=== PATIENT | male | born 1955 | race Two or more races ===

== ENCOUNTER 2017-07-02 13:20 | Emergency (ER) | payer OTHER ==
[2017-07-02 13:39] VITALS: BMI 27.3
--- NOTE | 2017-07-02 14:48 | PDOC ---
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 He reports his BP in the drafter structural office was 209/ 108 today. He denies taking his coreg for hypertension this morning. He states he is normally compliant with his medications. He denies monitoring his BP daily despite having the machine at home. The patient's son brought his father' s medications and the patient took the coreg in the ED. He denies chest pain, shortness of breath, headache, visual changes, and dizziness. He denies fever, chills, nausea, vomit, diarrhea and constipation. He denies dysuria, frequency, urgency and hematuria. Allergies: NKDA Social history: denies toxic habits <Inessa Johnson - Last Filed: 07/02/17 14:53> - General History Source: Patient Exam Limitations: No Limitations <Vandana Daley - Last Filed: 07/02/17 16:46> - General Chief Complaint: Blood Pressure Problem Stated Complaint: ELEVATED BP Time Seen by Provider: 07/02/17 14:48 Past History <Inessa Johnson - Last Filed: 07/02/17 14:53> - Past Medical History Cancer: Yes (colon cancer) COPD: No DVT: No Diabetes: No GI Disorders: No Disorders: No HTN: Yes Liver Disease: No Thyroid Disease: No - Surgical History Abdominal Surgery: No Appendectomy: No Cardiac Surgery: No Cholecystectomy: Yes Lung Surgery: No Neurologic Surgery: No Orthopedic Surgery: No - Immunization History Immunization Up to Date: Yes - Suicide/Smoking/Psychosocial Hx Smoking Status: No Smoking History: Never smoked Have you smoked in the past 12 months: No Number of Cigarettes Smoked Daily: 0 Information on smoking cessation initiated: No Hx Alcohol Use: No Drug/Substance Use Hx: No Substance Use Type: None <Vandana Daley - Last Filed: 07/02/17 16:46> - Past Medical History Allergies/Adverse Reactions: Allergies Allergy/AdvReac Type Severity Reaction Status Date / Time No Known Allergies Allergy Verified 07/02/17 13:28 Home Medications: Ambulatory Orders Carvedilol 6.25 mg PO BID 07/02/17 Cyanocobalamin (Vitamin B-12) [B-12] 1,000 mcg PO DAILY 07/02/17 Losartan Potassium 100 mg PO DAILY 07/02/17 Prednisone [Deltasone] 60 mg PO DAILY 07/02/17 Review of Systems - Review of Systems Able to Perform ROS?: Yes Comments:: 07/02/17 14:54 CONSTITUTIONAL: Absent: fever, no chills, no fatigue EYES: Absent: visual changes ENT: Absent: ear pain, no sore throat CARDIOVASCULAR: Absent: chest pain, no palpitations RESPIRATORY: Absent: cough, no SOB GASTROINTESTINAL: Absent: abdominal pain, no nausea, no vomiting, no constipation, no diarrhea GENITOURINARY: Absent: dysuria, no frequency, no hematuria MUSCULOSKELETAL: Absent: back pain, no arthralgia, no myalgia SKIN: Absent: rash NEURO: Absent: headache <Inessa Johnson - Last Filed: 07/02/17 14:53> *Physical Exam - Vital Signs Last Vital Signs Temp Pulse Resp BP Pulse Ox 98.3 F 66 17 190/110 94 L 07/02/17 13:28 07/02/17 13:28 07/02/17 13:28 07/02/17 13:28 07/02/17 13:28 - Physical Exam Comments: 07/02/17 14:55 GENERAL: The patient is in no acute distress. HEAD: Normal with no signs of trauma. EYES: PERRLA, EOMI, sclera anicteric, conjunctiva clear. ENT: Ears normal, nares patent, oropharynx clear without exudates. Moist mucous membranes. NECK: Normal range of motion, supple without lymphadenopathy, JVD, or masses. LUNGS: Breath sounds equal, clear to auscultation bilaterally. No wheezes, and no crackles. HEART:Regular rate and rhythm, normal S1 and S2 without murmur, rub or gallop. ABDOMEN: Soft, nontender, normoactive bowel sounds. No guarding, no rebound. No masses palpable. EXTREMITIES: Normal range of motion, no edema. No clubbing or cyanosis. No erythema, or tenderness. NEUROLOGICAL: Cranial nerves II through XII grossly intact. Normal speech. No focal neurological deficits. MUSCULOSKELETAL: Back non-tender to palpation, no CVA tenderness SKIN: Warm, Dry, normal turgor, no rashes or lesions noted. 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 Pt was sent to the ER for "Evaluation" Pt denies chest pain, shortness of breath, palpitations, headache, visual changes Pt is well appearing on examination Rash noted on the face and dorsum of both hands RRR CTA No abd tenderness Will do: Basic Labs Pt took his medication that he was supposed to take this morning EKG 07/02/17 15:40 EKG: SR rate of 68 bpm, axis nml, intervals nml, no st elevations or depressions 07/02/17 16:01 Selected Entries 07/02/17 15:49 Blood Pressure 112/100 [Right Arm] Laboratory Tests 07/02/17 15:25 WBC 6.4 D Hgb 14.0 D Hct 40.6 D Plt Count 299 07/02/17 16:43 Laboratory Tests 07/02/17 15:25 Sodium 141 Potassium 4.1 Chloride 106 Carbon Dioxide 27 BUN 12 D Creatinine 0.8 Alkaline Phosphatase 136 H D Creatine Kinase 400 H Creatine Kinase Index 1.1 CK-MB (CK-2) 4.436 H Troponin I < 0.02 Will discharge to home Follow up with PMD Clinical Impression: essential hypertension, initial presentation <Vandana Daley - Last Filed: 07/02/17 16:46> *DC/Admit/Observation/Transfer - Attestations Scribe Attestion: 07/02/17 14:55 Documentation prepared by Inessa Johnson, acting as emergency medical service manager for Vandana Daley MD <Inessa Johnson - Last Filed: 07/02/17 14:53> - Discharge Dispostion Admit: No <Vandana Daley - Last Filed: 07/02/17 16:46> Diagnosis at time of Disposition: Hypertension Qualifiers: Hypertension type: unspecified Qualified Code(s): I10 - Essential (primary) hypertension - Discharge Dispostion Disposition: HOME Condition at time of disposition: Stable - Referrals Referrals: Aries Bolaños [Primary Care Provider] - - Patient Instructions Printed Discharge Instructions: DI for High Blood Pressure Additional Instructions: Mr Flynn Thank you for coming into the emergency department today. Please be sure to follow up with your primary care physician. Presenting to take medications as prescribed. If you develop any symptoms that are new or concerning, please feel free to come into the emergency department for evaluation - Post Discharge Activity Forms/Work/School Notes: Back to Work
[2017-07-02 15:36] LABS: BASO % 0.8 % (0-2.0); EOS % 4.6 % (0-4.5); HEMATOCRIT 40.6 % (35.4-49); LYMPH % 15.4 % (8-40); MCH 29.3 pg (25.7-33.7); MCHC 34.4 g/dl (32.0-35.9); MEAN CELL VOLUME 85.3 fl (80-96); MEAN PLT VOLUME 7.7 fl (7.5-11.1); MONO % 9.7 % (3.8-10.2); NEUT % 69.5 % (42.8-82.8); PLATELET COUNT 299 K/MM3 (134-434); RBC 4.77 M/mm3 (4.00-5.60); RDW 14.1 % (11.9-15.9); WHITE BLOOD COUNT 6.4 K/mm3 (4.0-10.0)
[2017-07-02 16:03] LABS: ALBUMIN 4.2 g/dl (3.4-5.0); ANION GAP 8 (8-16); BILIRUBIN,TOTAL 0.7 mg/dL (0.2-1.0); BLOOD UREA NITROGEN 12 mg/dL (7-18); CALCIUM 9.2 mg/dL (8.5-10.1); CHLORIDE 106 mmol/L (98-107); CO2 27 mmol/L (21-32); CREATININE 0.8 mg/dL (0.7-1.3); GLUCOSE,RANDOM 92 mg/dL (74-106); POTASSIUM 4.1 mmol/L (3.5-5.1); SGOT/AST 25 U/L (15-37); SGPT/ALT 24 U/L (12-78); SODIUM 141 mmol/L (136-145); TOT PROT 7.9 g/dl (6.4-8.2)
[2017-07-02 16:06] LABS: ALK PHOS 136 U/L (45-117)
[2017-07-02 17:05] VITALS: BP 169/100; PULSE 74; TEMP 98.1
--- NOTE | 2017-07-02 19:16 | EKG ---
Test Reason : Blood Pressure : / mmHG Vent. Rate : 068 BPM Atrial Rate : 068 BPM P-R Int : 188 ms QRS Dur : 098 ms QT Int : 402 ms P-R-T Axes : 042 -21 020 degrees QTc Int : 427 ms NORMAL SINUS RHYTHM NORMAL ECG WHEN COMPARED WITH ECG OF 30-SEP-2011 03:18, NONSPECIFIC T WAVE ABNORMALITY NO LONGER EVIDENT IN ANTERIOR LEADS Confirmed by RAIMUNDO DRAPER, JESSICA ([id number]) on 07/02/2017 7:15:58 PM Referred By: Confirmed By:JESSICA EUBANKS MD
== END 2017-07-02 17:05 | disposition home or self-care (01) ==
LOC: JER 13:20
DX: I10 Essential (primary) hypertension (principal)
CPT/HCPCS: 36415; 80053; 82550; 82553; 84484; 85025; 93005; 93010; 99283-25

== ENCOUNTER 2017-08-14 09:41 | Inpatient (IN) | payer OTHER ==
[2017-08-14 09:53] VITALS: BMI 28.1
--- NOTE | 2017-08-14 09:55 | PDOC ---
History of Present Illness - General Chief Complaint: SIRS, Suspected/Possible Stated Complaint: LETHARGIC, NAUSEA Time Seen by Provider: 08/14/17 09:55 - History of Present Illness Initial Comments: 08/14/17 10:08 The patient is a 61 year old male with a history of HTN and Colon CA who presents for evaluation of generalized weakness, nausea, vomiting, diarrhea. The patient was noted to experience a syncopal episode in triage with a systolic BP of 70. The patient is accompanied by family who assist in providing the history. They note that the patient has been experiencing dysuria and urinary incontinence over the past several days with associated nausea and multiple episodes of non-bilious, non-bloody vomiting, and diarrhea. They report subjective fevers at home but otherwise deny SOB, chest pain, numbness, tingling or changes with bowel movements. Past History - Past Medical History Allergies/Adverse Reactions: Allergies Allergy/AdvReac Type Severity Reaction Status Date / Time No Known Allergies Allergy Verified 08/14/17 09:45 Home Medications: Ambulatory Orders Carvedilol 6.25 mg PO BID 07/02/17 Losartan Potassium 100 mg PO DAILY 07/02/17 Nifedipine [Procardia Xl] 30 mg PO DAILY 08/14/17 Cancer: Yes (colon cancer) COPD: No DVT: No Diabetes: No GI Disorders: No Disorders: No HTN: Yes Liver Disease: No Thyroid Disease: No - Surgical History Abdominal Surgery: Yes (COLON RESECTION) Appendectomy: No Cardiac Surgery: No Cholecystectomy: Yes Lung Surgery: No Neurologic Surgery: No Orthopedic Surgery: No - Immunization History Immunization Up to Date: Yes - Suicide/Smoking/Psychosocial Hx Smoking Status: No Smoking History: Never smoked Have you smoked in the past 12 months: No Number of Cigarettes Smoked Daily: 0 Information on smoking cessation initiated: No Hx Alcohol Use: No Drug/Substance Use Hx: No Substance Use Type: None Review of Systems - Review of Systems Comments:: 08/14/17 10:13 Constitutional: Fever, Generalized Fatigue. No malaise HEENT: No Rhinorrhea, nasal congestion, visual changes Cardiovascular: Syncope. No chest pain, palpitations, lightheadedness Respiratory: No Cough, SOB, Hemoptysis, Gastrointestinal: Nausea, vomiting, Diarrhea. No Abdominal pain, Constipation, Melena Genitourinary: Dysuria, Incontinence, Increased Frequency. No Urgency, Hesitancy, Hematuria, Flank pain Musculoskeletal: No Myalgia, arthralgia Skin: No rashes, itching, bruising, pallor Neurologic: No Headache, Dizziness, Numbness, Weakness, or Tingling Psychiatric: No Hallucinations. No SI or HI *Physical Exam - Vital Signs Last Vital Signs Temp Pulse Resp BP Pulse Ox 99.7 F H 80 18 70/38 100 08/14/17 09:45 08/14/17 09:45 08/14/17 09:45 08/14/17 09:45 08/14/17 09:45 - Physical Exam Comments: 08/14/17 10:17 General Appearance: Nourished. Diaphoretic, In Mild Apparent Distress HEENT: EOMI, TU. No Pharyngeal Erythema, Tonsillar Exudate, Tonsillar Erythema Neck: No Cervical Lymphadenopathy Respiratory/Chest: Lungs Clear, Normal Breath Sounds. No Crackles, Rales, Rhonchi, Wheezing Cardiovascular: Regular Rhythm, Regular Rate. No Murmur, Gallops, Rubs Gastrointestinal/Abdominal: Normal Bowel Sounds, Soft. No Guarding, Rebound, Tenderness Musculoskeletal: No CVA Tenderness Extremity: Normal Capillary Refill Integumentary: Normal Color, Dry, Warm Neurologic: Fully Oriented, Alert, Normal Mood/Affect, Normal Response, Heart Score/ECG Review #1 ECG reviewed & interpreted by me at: 10:18 General ECG Interpretation: Sinus Rhythm, Normal Rate, Normal Intervals, No acute ischemic changes ED Treatment Course - LABORATORY CBC & Chemistry Diagram: 08/14/17 10:12 08/14/17 10:14 Medical Decision Making - Critical Care Time Total Critical Care Time (minutes): 45 Critical Care Statement: The care of this patient involved high complexity decision making to prevent further life threatening deterioration of the patient 's condition and/or to evaluate & treat vital organ system(s) failure or risk of failure. - Medical Decision Making 08/14/17 10:18 The patient is a 61 year old male with a history of HTN and Colon CA who presents for evaluation of generalized weakness, nausea, vomiting, diarrhea. Differential includes but is not limited to: Sepsis, UTI, Viral Syndrome, ACS, Infectious, metabolic derangement. Given the patient's history and physical exam, it is likely his symptoms are due to sepsis from a UTI. We will obtain a cbc, cmp, troponin, lactate, vbg, ua, urine culture, blood culture, ekg, chest plain film to evaluate further. The patient was hypotensive in triage with his blood pressure now improving to 108 systolic. We will treat in the meantime with iv fluids, ceftriaxone, and iv tylenol and continue to closely monitor and reassess while here in the ED. 08/14/17 13:59 CBC, cmp, troponin, lactate are unremarkable. Chest plain film demonstrates a left pulmonary infiltrate as well as an retrocardiac opacity concerning for a mass as read by our radiologist. Given the patient's chest xray findings, we will obtain a chest ct to evaluate further. The patient's bp has improved and remained stable after 4 L of NS. We discussed the case with the hospitalist team who accepted the patient for admission. *DC/Admit/Observation/Transfer Diagnosis at time of Disposition: Sepsis Qualifiers: Sepsis type: sepsis due to unspecified organism Qualified Code(s): A41.9 - Sepsis, unspecified organism Pneumonia Qualifiers: Pneumonia type: due to unspecified organism Laterality: unspecified laterality Lung location: unspecified part of lung Qualified Code(s): J18.9 - Pneumonia, unspecified organism - Discharge Dispostion Condition at time of disposition: Stable Decision to Admit order: Yes - Referrals - Patient Instructions - Post Discharge Activity
--- NOTE | 2017-08-14 10:01 | PDOC ---
Attending Attestation - Critical Care Time Total Critical Care Time: 30 Critical Care Statement: The care of this patient involved high complexity decision making to prevent further life threatening deterioration of the patient 's condition and/or to evaluate & treat vital organ system(s) failure or risk of failure. - Medical Decision Making 08/14/17 12:41 Pt presents to the ED complaining of syncope today. Found to be hypotensive and diaphoretic in triage, with an episode of syncope in triage. Severely hypotensive on ED arrival with improvement after IV hydration. Concern for sepsis, given hypotension and diaphoresis, although lactate is normal and patient is afebrile rectally. CXR shows PNA. Will admit to medicine for continued IV antibiotics and monitoring. 08/14/17 13:06 <Irena Calderon - Last Filed: 08/14/17 13:08> - Resident Resident Name: JoanieEliseo - ED Attending Attestation I have performed the following: I have examined & evaluated the patient, The case was reviewed & discussed with the resident, I agree w/resident's findings & plan, Exceptions are as noted - HPI HPI: 08/14/17 10:23 The patient is a 61 year old male with a significant past medical history of colon cancer and hypertension who presents to the emergency department for evaluation of generalized weakness. The patient reports feeling ill since Friday. He reports multiple episodes of NBNB emesis as well as urinary incontinence. The patient reports having a near syncopal episode in the bathroom today which prompted him to visit the emergency department for further evaluation. He reports associated symptoms of subjective fever, nausea, diaphoresis, and dysuria. The patient denies chest pain, shortness of breath, headache, chills, diarrhea, and hematuria. Allergies: NKA Past surgical history: colon resection, cholecystectomy Social history: No reported cigarette, alcohol, or drug use. PCP: Dr. Julien Palma - Physicial Exam PE: GENERAL: (+)mildly uncomfortable. Awake, alert, and fully oriented. HEAD: No signs of trauma EYES: PERRLA, EOMI, sclera anicteric, conjunctiva clear ENT: Auricles normal inspection, hearing grossly normal, nares patent, oropharynx clear without exudates. Moist mucosa NECK: Normal ROM, supple, no lymphadenopathy, JVD, or masses LUNGS: Breath sounds equal, clear to auscultation bilaterally. No wheezes, and no crackles HEART: Regular rate and rhythm, normal S1 and S2, no murmurs, rubs or gallops ABDOMEN: Soft, nontender, nondistended, normoactive bowel sounds. No guarding, no rebound. No masses EXTREMITIES: Normal range of motion, no edema. No clubbing or cyanosis. No cords, erythema, or tenderness NEUROLOGICAL: Alert and Oriented x3. Cranial nerves II through XII grossly intact. Normal speech. SKIN: (+)Diaphoretic. Warm, Dry, normal turgor, no rashes or lesions noted. <Abdelrahman Yadav - Last Filed: 08/14/17 13:18> Attestations - Attestations Documentation prepared by Abdelrahman Yadav, acting as medical services manager for Irena Calderon MD. <Abdelrahman Yadav - Last Filed: 08/14/17 13:18>
[2017-08-14] MEDS ORDERED: SODIUM CHLORIDE 1,000 ML IV STA ×5 (10:05→11:16)
[2017-08-14] MEDS ORDERED: CEFTRIAXONE 1 GM in DEXTROSE 5%-WATER - 100 ML IVPB ONE (10:06)
[2017-08-14] MEDS ORDERED: ACETAMINOPHEN 1000 MG/100 ML VIAL (NON FORMULARY) IVPB ONE (10:09)
[2017-08-14] MEDS ORDERED: CEFTRIAXONE 1 GM/50 ML BAG ONE (10:19)
[2017-08-14] MEDS ORDERED: ACETAMINOPHEN INJECTION 100 ML IVPB ONE (10:19)
[2017-08-14 10:23] LABS: BASO % 0.2 % (0-2.0); EOS % 0.8 % (0-4.5); HEMATOCRIT 40.2 % (35.4-49); HEMOGLOBIN 13.5 GM/dL (11.7-16.9); LYMPH % 5.5 % (8-40); MCH 28.9 pg (25.7-33.7); MCHC 33.5 g/dl (32.0-35.9); MEAN CELL VOLUME 86.3 fl (80-96); MEAN PLT VOLUME 8.2 fl (7.5-11.1); MONO % 8.6 % (3.8-10.2); NEUT % 84.9 % (42.8-82.8); PLATELET COUNT 301 K/MM3 (134-434); RBC 4.66 M/mm3 (4.00-5.60); RDW 14.8 % (11.9-15.9)
[2017-08-14 10:26] LABS: VENOUS PH 7.39 (7.32-7.42)
[2017-08-14 10:27] LABS: VENOUS PC02 38.5 mmHg (38-52); VENOUS PO2 49.2 mmHg (28-48)
[2017-08-14 10:34] LABS: URINE APPEARANCE CLEAR; URINE BILIRUBIN NEGATIVE (<2.0 mg/dL); URINE BLOOD NEGATIVE (NEGATIVE); URINE GLUCOSE (UA) NEGATIVE (NEGATIVE); URINE KETONE 1+ (NEGATIVE); URINE LEUK ESTERASE NEGATIVE (NEGATIVE); URINE NITRITE NEGATIVE (NEGATIVE); URINE PROTEIN NEGATIVE (NEGATIVE)
[2017-08-14 10:41] LABS: URINE COLOR DK YELLOW
[2017-08-14 10:55] LABS: ALBUMIN 3.5 g/dl (3.4-5.0); ANION GAP 9 (8-16); BILIRUBIN,TOTAL 1.3 mg/dL (0.2-1.0); BLOOD UREA NITROGEN 35 mg/dL (7-18); CALCIUM 8.5 mg/dL (8.5-10.1); CHLORIDE 102 mmol/L (98-107); CO2 23 mmol/L (21-32); CREATININE 1.2 mg/dL (0.7-1.3); GLUCOSE,RANDOM 123 mg/dL (74-106); POTASSIUM 4.2 mmol/L (3.5-5.1); SGOT/AST 30 U/L (15-37); SGPT/ALT 25 U/L (12-78); SODIUM 134 mmol/L (136-145); TOT PROT 6.6 g/dl (6.4-8.2)
[2017-08-14 10:57] LABS: ALK PHOS 89 U/L (45-117)
[2017-08-14 11:17] LABS: INR 1.1 (0.82-1.09); PROTHROMBIN TIME (PATIENT) 12.4 SEC (9.7-13.0)
[2017-08-14 11:20] LABS: ACTIVATED PTT 32.3 SECONDS (26.9-34.4)
--- NOTE | 2017-08-14 11:28 | EKG ---
Test Reason : Blood Pressure : / mmHG Vent. Rate : 072 BPM Atrial Rate : 072 BPM P-R Int : 164 ms QRS Dur : 090 ms QT Int : 376 ms P-R-T Axes : 026 -16 020 degrees QTc Int : 411 ms SINUS RHYTHM WITH PREMATURE ATRIAL COMPLEXES INFERIOR INFARCT , AGE UNDETERMINED ABNORMAL ECG WHEN COMPARED WITH ECG OF 02-JUL-2017 15:26, PREMATURE ATRIAL COMPLEXES ARE NOW PRESENT Confirmed by EDWARD DRAPER, LASHELL ([id number]) on 08/14/2017 11:28:06 AM Referred By: Confirmed By:LASHELL LEON MD
--- NOTE | 2017-08-14 13:43 | HP ---
CHIEF COMPLAINT: " Generalized weakness, vomiting and diarrhoea" PCP: Dr Palma Derm: Dr. Steve HISTORY OF PRESENT ILLNESS: Patient is a 61 year old male presented to the ED complaining of " Generalized weakness, vomiting and diarrhoea". As per the patient, his symptoms started 3 days ago. Stared with mild abdominal pain with nausea and an episode of vomiting. Vomitus was brown in color. Since then he has had several episodes of NBNB vomiting and watery diarrhea. Has poor oral intake. No h/o taking any food from the restaurants recently. No sick contacts. Does have subjective fevers. Denies chest pain, sob, cough, palpitation, headache, seizures. Had an unwitnessed syncopal episode at 4am this morning while going to the bathroom. His heard a loud noise and found him sitting on the floor. Doesn' t remember if he hit his head. Hence was brought in to the ED for further evaluation. In the triage, while he was sitting on a chair, he had a witnessed syncope. At that time his systolic BP was in 70's. He was immediately given IV fluids and he responded. No seizure activity noted. Patient's mentioned that he had taken all his BP meds this morning. ER course was notable for: (1) Temp- 99.7 F; Hypotensive to 85/56 mmHg; Hyponatremia 134 (2) CXR: Left retrocardiac mass like opacity; Central left parahilar pulmonary consolidation (3) EKG: NSR. (4) IV NS 4 L Recent Travel: None PAST MEDICAL HISTORY: HTN and Colon CA s/p resection; SBO PAST SURGICAL HISTORY: As mentioned above Social History: Smoking: Never smoked Alcohol: Occasional Drugs: Denies Family History: Mother had a h/o Lung CA. Allergies No Known Allergies Allergy (Verified 08/14/17 09:45) HOME MEDICATIONS: Home Medications Medication Instructions Recorded Carvedilol 6.25 mg PO BID 07/02/17 Losartan Potassium 100 mg PO DAILY 07/02/17 Nifedipine [Procardia Xl] 30 mg PO DAILY 08/14/17 REVIEW OF SYSTEMS CONSTITUTIONAL: Present: generalized weakness, loss of appetite, Absent: fever, chills, diaphoresis, malaise, weight change HEENT: Absent: rhinorrhea, nasal congestion, throat pain, throat swelling, difficulty swallowing, mouth swelling, ear pain, eye pain, visual changes CARDIOVASCULAR: Absent: chest pain, syncope, palpitations, irregular heart rate, lightheadedness , peripheral edema RESPIRATORY: Absent: cough, shortness of breath, dyspnea with exertion, orthopnea, wheezing, stridor, hemoptysis GASTROINTESTINAL: Present: nausea, vomiting, diarrhea Absent: abdominal pain, abdominal distension, constipation, melena, hematochezia GENITOURINARY: Absent: dysuria, frequency, urgency, hesitancy, hematuria, flank pain, genital pain MUSCULOSKELETAL: Absent: myalgia, arthralgia, joint swelling, back pain, neck pain SKIN: Absent: rash, itching, pallor HEMATOLOGIC/IMMUNOLOGIC: Absent: easy bleeding, easy bruising, lymphadenopathy, frequent infections ENDOCRINE: Absent: unexplained weight gain, unexplained weight loss, heat intolerance, cold intolerance NEUROLOGIC: Absent: headache, focal weakness or paresthesias, dizziness, unsteady gait, seizure, mental status changes, bladder or bowel incontinence PSYCHIATRIC: Absent: anxiety, depression, suicidal or homicidal ideation, hallucinations. PHYSICAL EXAMINATION Vital Signs - 24 hr 08/14/17 08/14/17 08/14/17 09:45 10:00 10:24 Temperature 99.7 F H Pulse Rate 80 Pulse Rate [ 79 73 Apical] Respiratory 18 18 18 Rate Blood Pressure 70/38 Blood Pressure 97/60 117/67 [Right Arm] O2 Sat by Pulse 100 98 98 Oximetry (%) 08/14/17 08/14/17 08/14/17 11:13 11:28 11:40 Temperature 99.0 F Pulse Rate Pulse Rate [ 77 68 66 Apical] Respiratory 18 18 Rate Blood Pressure Blood Pressure 85/56 86/58 92/56 [Right Arm] O2 Sat by Pulse 95 98 99 Oximetry (%) 08/14/17 08/14/17 11:44 11:59 Temperature 99.0 F 98.7 F Pulse Rate Pulse Rate [ 78 Apical] Respiratory 17 Rate Blood Pressure Blood Pressure 94/55 [Right Arm] O2 Sat by Pulse 99 Oximetry (%) GENERAL: Patient is sitting comfortably in bed, Awake, alert, and fully oriented , in no acute distress. HEAD: Normal with no signs of trauma. EYES: EOM intact, no pallor or icterus. EARS, NOSE, THROAT: Ears normal. Moist mucous membranes. NECK: Supple. LUNGS: B/L Breath sounds equal, minimal crackles on the left side, decreased BS on the L> R. No accessory muscle use. HEART: Regular rate and rhythm, normal S1 and S2 without murmur. ABDOMEN: Soft, nontender, not distended, normoactive bowel sounds, no guarding, no rebound, no masses. No hepatomegaly or splenomegaly. MUSCULOSKELETAL: Normal range of motion at all joints. No bony deformities or tenderness. No CVA tenderness. UPPER EXTREMITIES: 2+ pulses, warm, well-perfused. No cyanosis. No clubbing. No peripheral edema. LOWER EXTREMITIES: 2+ pulses, warm, well-perfused. No calf tenderness. No peripheral edema. NEUROLOGICAL: No facial droop, Cranial nerves II-XII intact. Normal speech. Gait not observed. PSYCHIATRIC: Cooperative. Good eye contact. Appropriate mood and affect. SKIN: Warm, dry, normal turgor, peeling of skin on the nose and hands, normal capillary refill. Laboratory Results - last 24 hr 08/14/17 08/14/17 08/14/17 10:12 10:12 10:12 WBC 9.0 D RBC 4.66 Hgb 13.5 Hct 40.2 MCV 86.3 MCH 28.9 MCHC 33.5 RDW 14.8 Plt Count 301 MPV 8.2 Absolute Neuts (auto) 7.6 Neutrophils % 84.9 H D Lymphocytes % 5.5 L D Monocytes % 8.6 Eosinophils % 0.8 D Basophils % 0.2 Nucleated RBC % 0 PT with INR 12.40 INR 1.10 PTT (Actin FS) 32.3 VBG pH POC VBG pCO2 POC VBG pO2 Mixed VBG HCO3 Sodium Potassium Chloride Carbon Dioxide Anion Gap BUN Creatinine Creat Clearance w eGFR Random Glucose Lactic Acid Calcium Total Bilirubin AST ALT Alkaline Phosphatase Creatine Kinase Creatine Kinase Index CK-MB (CK-2) Troponin I Total Protein Albumin Urine Color Dk yellow Urine Appearance Clear Urine pH 5.0 Ur Specific [place] 1.027 Urine Protein Negative Urine Glucose (UA) Negative Urine Ketones 1+ H Urine Blood Negative Urine Nitrite Negative Urine Bilirubin Negative Urine Urobilinogen 2.0 Ur Leukocyte Esterase Negative 08/14/17 08/14/17 08/14/17 10:14 10:20 10:20 WBC RBC Hgb Hct MCV MCH MCHC RDW Plt Count MPV Absolute Neuts (auto) Neutrophils % Lymphocytes % Monocytes % Eosinophils % Basophils % Nucleated RBC % PT with INR INR PTT (Actin FS) VBG pH 7.39 POC VBG pCO2 38.5 POC VBG pO2 49.2 H Mixed VBG HCO3 22.8 Sodium 134 L Potassium 4.2 Chloride 102 Carbon Dioxide 23 Anion Gap 9 BUN 35 H D Creatinine 1.2 D Creat Clearance w eGFR > 60 Random Glucose 123 H D Lactic Acid 1.8 Calcium 8.5 Total Bilirubin 1.3 H D AST 30 ALT 25 Alkaline Phosphatase 89 D Creatine Kinase 181 Creatine Kinase Index 0.5 CK-MB (CK-2) 0.99 Troponin I < 0.02 Total Protein 6.6 Albumin 3.5 Urine Color Urine Appearance Urine pH Ur Specific [place] Urine Protein Urine Glucose (UA) Urine Ketones Urine Blood Urine Nitrite Urine Bilirubin Urine Urobilinogen Ur Leukocyte Esterase 08/14/17 11:50 WBC RBC Hgb Hct MCV MCH MCHC RDW Plt Count MPV Absolute Neuts (auto) Neutrophils % Lymphocytes % Monocytes % Eosinophils % Basophils % Nucleated RBC % PT with INR INR PTT (Actin FS) VBG pH POC VBG pCO2 POC VBG pO2 Mixed VBG HCO3 Sodium Potassium Chloride Carbon Dioxide Anion Gap BUN Creatinine Creat Clearance w eGFR Random Glucose Lactic Acid 1.2 Calcium Total Bilirubin AST ALT Alkaline Phosphatase Creatine Kinase Creatine Kinase Index CK-MB (CK-2) Troponin I Total Protein Albumin Urine Color Urine Appearance Urine pH Ur Specific [place] Urine Protein Urine Glucose (UA) Urine Ketones Urine Blood Urine Nitrite Urine Bilirubin Urine Urobilinogen Ur Leukocyte Esterase CXR: Left retrocardiac mass like opacity; Central left parahilar pulmonary consolidation ASSESSMENT/PLAN: Patient is a 61 year with old male significant past medical history of Hypertension and Colon Cancer s/p resection, SBO presented to the ED complaining of " Generalized weakness, vomiting and diarrhoea". # Community acquired pneumonia Had subjective fever at home however does not have respiratory symptoms. Doesn't meet sepsis criteria. R/o legionella: Pt is hypotensive, hyponatremic with diarrhoea. On arrival, his temp was 99.7 F, no leukocytosis CXR showed parahilar pul consolidation Admitted in Tele Awaiting CT chest Continue IV Ceftriaxone and IV Azithromycin Urine for legionella pending Urine culture/Blood culture sent before the antibiotics # Diarrhoea/Vomiting- could be due to viral process IV NS @ 100 mls/hr. Stool studies sent: Campylobacter, Salmonella, Shigella, Ova and parasite # Syncopal episode like due to Hypotension responding to fluids Tele monitoring, continuous cardiac monitoring Check orthostatics. Continue IV NS @ 100mls/hr. Already received 4 L of NS Hold hypertensive meds Head CT without contrast ordered. # Retrocardiac mass like opacity R/O mass, could be a large consolidation CT chest pending. Echo pending # Hypertension- now hypotensive Hold Carvedilol Losartan and Nifedipine due to hypotension. # Colon CA s/p resection Last colonoscopy was done in 2011 # FEN IV NS @ 100 mls/hr Electrolytes WNL Sodium controlled diet # Prophylaxis For DVT: On Heparin 5000 IU sq TID For GI: Not indicated # Code Status: Full Code # Dispo: Admitted in Med-Surg. Illness, Investigation and Plan of care explained to the patient and his . They verbalized understanding. Case to be discussed with Dr. Woods. Visit type - Emergency Visit Emergency Visit: Yes Care time: The patient presented to the Emergency Department on the above date and was hospitalized for further evaluation of their emergent condition. - New Patient This patient is new to me today: Yes Date on this admission: 08/14/17 - Critical Care Critical Care patient: No
--- NOTE | 2017-08-14 16:20 | PN ---
Teaching Attending Note Name of Resident: Tyler Wharton ATTENDING PHYSICIAN STATEMENT I saw and evaluated the patient. I reviewed the resident's note and discussed the case with the resident. I agree with the resident's findings and plan as documented with exceptions below SUBJECTIVE: 61 yom with PMHx of Colon cancer (?vs benign mass) s/p sigmoid resection, SBO in 2012, managed conservatively, HTN, admitted with 4 days of nausea, nonbloody non bilious vomiting, non bloody diarrhea, initially abdominal pain which resolved later, minimal po intake. Ciara was in the bathroom when had reported syncopal event, unwitnessed, heard loud noise in bathroom, found him sitting on floor, was brought to the ED. While in the ED, had another syncopal event, witnessed while sitting in chair when SBP was noted in 70s. patient received 4L of IVF with improvement in his BP. His last BM was this morning, but currently asymptomatic sitting in bed. Denies any nausea, vomiting, abdominal pain. Positive subjective chills but no recorded fevers, recent travel , antibiotics, hospitalization, cough, sputum, dyspnea, or urinary symptoms. Still with poor appetite. OBJECTIVE: Vital Signs Period Temp Pulse Resp BP Sys/[place]att Pulse Ox Last 24 Hr 98.6 F-99.7 F 66-80 17-18 70-118/38-68 95-100 Intake & Output 08/11/17 08/12/17 08/13/17 08/14/17 23:59 23:59 23:59 23:59 Intake Total 4300 Output Total 20 Balance 4280 Weight 180 lb GENERAL: Awake, alert, and fully oriented, in no acute distress. HEAD: Normal with no signs of trauma. EYES: Pupils equal, round and reactive to light, extraocular movements intact, sclera anicteric, conjunctiva clear. No lid lag. EARS, NOSE, THROAT: Ears normal, nares patent, oropharynx clear without exudates. Moist mucous membranes currently. NECK: Normal range of motion, supple without lymphadenopathy, JVD LUNGS: Breath sounds equal, clear to auscultation bilaterally. No wheezes, and no crackles. No accessory muscle use. HEART: S1S2 regular ABDOMEN: Soft, nontender, not distended, normoactive bowel sounds, no guarding, no rebound, no masses. No hepatomegaly or splenomegaly appreciated. MUSCULOSKELETAL: Normal range of motion at all joints. No bony deformities or tenderness. No CVA tenderness. UPPER EXTREMITIES: 2+ pulses, warm, well-perfused. No cyanosis. No clubbing. No peripheral edema. LOWER EXTREMITIES: 2+ pulses, warm, well-perfused. No calf tenderness. No peripheral edema. NEUROLOGICAL: AAOx3, facial symmetry, power 5/5, gait deferred PSYCHIATRIC: Cooperative. Good eye contact. Appropriate mood and affect. SKIN: Warm, dry, normal turgor, no rashes or lesions noted, normal capillary refill. Home Medications Medication Instructions Recorded Carvedilol 6.25 mg PO BID 07/02/17 Losartan Potassium 100 mg PO DAILY 07/02/17 Nifedipine [Procardia Xl] 30 mg PO DAILY 08/14/17 Active Medications Heparin Sodium (Porcine) (Heparin -) 5,000 unit SQ TID BRIAN Azithromycin 500 mg/ Dextrose 250 mls @ 250 mls/hr IVPB DAILY BRIAN Ceftriaxone Sodium 1 gm/ (Dextrose) 50 mls @ 100 mls/hr IVPB DAILY BRIAN; Protocol Sodium Chloride (Normal Saline -) 1,000 mls @ 125 mls/hr IV ASDIR BRIAN Laboratory Results - last 24 hr 08/14/17 08/14/17 08/14/17 10:12 10:12 10:12 WBC 9.0 D RBC 4.66 Hgb 13.5 Hct 40.2 MCV 86.3 MCH 28.9 MCHC 33.5 RDW 14.8 Plt Count 301 MPV 8.2 Absolute Neuts (auto) 7.6 Neutrophils % 84.9 H D Lymphocytes % 5.5 L D Monocytes % 8.6 Eosinophils % 0.8 D Basophils % 0.2 Nucleated RBC % 0 PT with INR 12.40 INR 1.10 PTT (Actin FS) 32.3 VBG pH POC VBG pCO2 POC VBG pO2 Mixed VBG HCO3 Sodium Potassium Chloride Carbon Dioxide Anion Gap BUN Creatinine Creat Clearance w eGFR Random Glucose Lactic Acid Calcium Total Bilirubin AST ALT Alkaline Phosphatase Creatine Kinase Creatine Kinase Index CK-MB (CK-2) Troponin I Total Protein Albumin Urine Color Dk yellow Urine Appearance Clear Urine pH 5.0 Ur Specific [place] 1.027 Urine Protein Negative Urine Glucose (UA) Negative Urine Ketones 1+ H Urine Blood Negative Urine Nitrite Negative Urine Bilirubin Negative Urine Urobilinogen 2.0 Ur Leukocyte Esterase Negative 08/14/17 08/14/1708/14/18 10:14 10:20 10:20 WBC RBC Hgb Hct MCV MCH MCHC RDW Plt Count MPV Absolute Neuts (auto) Neutrophils % Lymphocytes % Monocytes % Eosinophils % Basophils % Nucleated RBC % PT with INR INR PTT (Actin FS) VBG pH 7.39 POC VBG pCO2 38.5 POC VBG pO2 49.2 H Mixed VBG HCO3 22.8 Sodium 134 L Potassium 4.2 Chloride 102 Carbon Dioxide 23 Anion Gap 9 BUN 35 H D Creatinine 1.2 D Creat Clearance w eGFR > 60 Random Glucose 123 H D Lactic Acid 1.8 Calcium 8.5 Total Bilirubin 1.3 H D AST 30 ALT 25 Alkaline Phosphatase 89 D Creatine Kinase 181 Creatine Kinase Index 0.5 CK-MB (CK-2) 0.99 Troponin I < 0.02 Total Protein 6.6 Albumin 3.5 Urine Color Urine Appearance Urine pH Ur Specific [place] Urine Protein Urine Glucose (UA) Urine Ketones Urine Blood Urine Nitrite Urine Bilirubin Urine Urobilinogen Ur Leukocyte Esterase 08/14/17 11:50 WBC RBC Hgb Hct MCV MCH MCHC RDW Plt Count MPV Absolute Neuts (auto) Neutrophils % Lymphocytes % Monocytes % Eosinophils % Basophils % Nucleated RBC % PT with INR INR PTT (Actin FS) VBG pH POC VBG pCO2 POC VBG pO2 Mixed VBG HCO3 Sodium Potassium Chloride Carbon Dioxide Anion Gap BUN Creatinine Creat Clearance w eGFR Random Glucose Lactic Acid 1.2 Calcium Total Bilirubin AST ALT Alkaline Phosphatase Creatine Kinase Creatine Kinase Index CK-MB (CK-2) Troponin I Total Protein Albumin Urine Color Urine Appearance Urine pH Ur Specific [place] Urine Protein Urine Glucose (UA) Urine Ketones Urine Blood Urine Nitrite Urine Bilirubin Urine Urobilinogen Ur Leukocyte Esterase EKG NSR, QS in III, aVF (present on old EKG) CXR- retrocardiac consolidation ASSESSMENT AND PLAN: 61 yom with pMHx of ?Colon ca (vs benign mass) s/p sigmoid resection, SBO , HTN , admitted with syncope x 2, hypotension and nausea/vomitting/diarrhea. -Syncope, suspect vasovagal compounded by severe hypovolumia -Nausea, vomiting/diarrhea, ?gastroenteritis, currently with resolved symptoms -Retrocardiac consolidation, r/o PNA vs mass -HTN -h/o Colon ca/ (vs benign kev) s/p sigmoid resection/SBO Plan: Aggressive IV hdyration, encourage po intake. Currently with completely benign abdominal exam, good bowel sounds, pos BM inhouse and asymptomatic, argue against recurrent SBO. Serial abdominal exams. Stool studies. CT chest. Levaquin, blood cx. Monitor for new respiratory symptoms. Telemetry but syncope likely from vasovagal/severe hypovolumia. CT head given unclear history of head trauma though neuro exam nonconcerning currently. Hold anti-hypertensives. DVTPPx with lovenox Dispo pending clinical improvement and resolution of symptoms. Plan discussed with patient and at bedside in detail, all questions answered. Total admit time 65 min.
--- NOTE | 2017-08-14 16:47 | HP ---
CHIEF COMPLAINT: weakness, n/v/d, syncope PCP: Dr. Clarke at [facility] HISTORY OF PRESENT ILLNESS: Pt is a 61 y/o M with PMH HTN, colon CA (diagnosed on routine screen and resected 3 years ago, complicated by sbo) who presented to ED with complaint of n/v/d and an episode of syncope. Per pt he began having abdominal pain and a single episode of brown nonbloody vomit on Mon. Abd pain persisted throughout the week, and Tu he began having watery diarrhea, several episodes per day. He had a single episode of syncope (unknown if there was head trauma, though pt has no pain in the head) at home this morning. After arriving in the hospital, pt had a second syncople episode in triage. It was witnessed by ED staff. BP at that time was 70 systolic. Pt was given 4 L NS, Levaquin x1, chang, benign ekg in ED. Pt also had CXR showing L consolidation and retrocardiac opacity. Currently, pt has no complaints. Pain is gone. No nausea. Notably, pt has had no respiratory complaints. ER course was notable for: (1) as above (2) (3) Recent Travel: denies PAST MEDICAL HISTORY: Colon CA, HTN, nephrolithiasis, SBO (following colectomy. resolved spontaneously ) PAST SURGICAL HISTORY: Cholecystectomy, Colectomy Social History: Smoking: denies Alcohol: former Drugs: denies Family History: ? lung CA in mother Allergies No Known Allergies Allergy (Verified 08/14/17 09:45) HOME MEDICATIONS: Home Medications Medication Instructions Recorded Carvedilol 6.25 mg PO BID 07/02/17 Losartan Potassium 100 mg PO DAILY 07/02/17 Nifedipine [Procardia Xl] 30 mg PO DAILY 08/14/17 REVIEW OF SYSTEMS CONSTITUTIONAL: subject fever, loss of appetite Absent: , chills, diaphoresis, generalized weakness, malaise, weight change HEENT: Absent: rhinorrhea, nasal congestion, throat pain, throat swelling, difficulty swallowing, mouth swelling, ear pain, eye pain, visual changes CARDIOVASCULAR: Absent: chest pain, syncope, palpitations, irregular heart rate, lightheadedness , peripheral edema RESPIRATORY: Absent: cough, shortness of breath, dyspnea with exertion, orthopnea, wheezing, stridor, hemoptysis GASTROINTESTINAL:abdominal pain, nausea, vomiting, diarrhea Absent: , abdominal distension, constipation, melena, hematochezia GENITOURINARY: Absent: dysuria, frequency, urgency, hesitancy, hematuria, flank pain, genital pain MUSCULOSKELETAL: Absent: myalgia, arthralgia, joint swelling, back pain, neck pain SKIN: Absent: rash, itching, pallor HEMATOLOGIC/IMMUNOLOGIC: Absent: easy bleeding, easy bruising, lymphadenopathy, frequent infections ENDOCRINE: Absent: unexplained weight gain, unexplained weight loss, heat intolerance, cold intolerance NEUROLOGIC: Absent: headache, focal weakness or paresthesias, dizziness, unsteady gait, seizure, mental status changes, bladder or bowel incontinence PSYCHIATRIC: Absent: anxiety, depression, suicidal or homicidal ideation, hallucinations. PHYSICAL EXAMINATION Vital Signs - 24 hr 08/14/17 08/14/17 08/14/17 09:45 10:00 10:24 Temperature 99.7 F H Pulse Rate 80 Pulse Rate [ 79 73 Apical] Respiratory 18 18 18 Rate Blood Pressure 70/38 Blood Pressure 97/60 117/67 [Right Arm] O2 Sat by Pulse 100 98 98 Oximetry (%) 08/14/17 08/14/17 08/14/17 11:13 11:28 11:40 Temperature 99.0 F Pulse Rate Pulse Rate [ 77 68 66 Apical] Respiratory 18 18 18 Rate Blood Pressure Blood Pressure 85/56 86/58 92/56 [Right Arm] O2 Sat by Pulse 95 98 99 Oximetry (%) 08/14/17 08/14/17 08/14/17 11:44 11:59 12:10 Temperature 99.0 F 98.7 F 98.6 F Pulse Rate Pulse Rate [ 78 74 Apical] Respiratory 17 17 Rate Blood Pressure Blood Pressure 94/55 105/68 [Right Arm] O2 Sat by Pulse 99 99 Oximetry (%) 08/14/17 13:45 Temperature 98.6 F Pulse Rate Pulse Rate [ 68 Apical] Respiratory 18 Rate Blood Pressure Blood Pressure 118/64 [Right Arm] O2 Sat by Pulse 100 Oximetry (%) VSS (note that BP dropped temporarily with change of position from supine to sitting, but immediately increased subsequently. Gen: NAD HEENT: NCAT, PERRLA, EOMI Neck: Supple, no jvd, no bruits Cardiac: RRR, normal s1s2, no m/r/g Pulm: ? subtle RLB crackles Abd: soft, NO tenderness to palpation, + BS, Hwang neg Laboratory Results - last 24 hr 08/14/17 08/14/17 08/14/17 10:12 10:12 10:12 WBC 9.0 D RBC 4.66 Hgb 13.5 Hct 40.2 MCV 86.3 MCH 28.9 MCHC 33.5 RDW 14.8 Plt Count 301 MPV 8.2 Absolute Neuts (auto) 7.6 Neutrophils % 84.9 H D Lymphocytes % 5.5 L D Monocytes % 8.6 Eosinophils % 0.8 D Basophils % 0.2 Nucleated RBC % 0 PT with INR 12.40 INR 1.10 PTT (Actin FS) 32.3 VBG pH POC VBG pCO2 POC VBG pO2 Mixed VBG HCO3 Sodium Potassium Chloride Carbon Dioxide Anion Gap BUN Creatinine Creat Clearance w eGFR Random Glucose Lactic Acid Calcium Total Bilirubin AST ALT Alkaline Phosphatase Creatine Kinase Creatine Kinase Index CK-MB (CK-2) Troponin I Total Protein Albumin Urine Color Dk yellow Urine Appearance Clear Urine pH 5.0 Ur Specific [place] 1.027 Urine Protein Negative Urine Glucose (UA) Negative Urine Ketones 1+ H Urine Blood Negative Urine Nitrite Negative Urine Bilirubin Negative Urine Urobilinogen 2.0 Ur Leukocyte Esterase Negative 08/14/17 08/14/17 08/14/17 10:14 10:20 10:20 WBC RBC Hgb Hct MCV MCH MCHC RDW Plt Count MPV Absolute Neuts (auto) Neutrophils % Lymphocytes % Monocytes % Eosinophils % Basophils % Nucleated RBC % PT with INR INR PTT (Actin FS) VBG pH 7.39 POC VBG pCO2 38.5 POC VBG pO2 49.2 H Mixed VBG HCO3 22.8 Sodium 134 L Potassium 4.2 Chloride 102 Carbon Dioxide 23 Anion Gap 9 BUN 35 H D Creatinine 1.2 D Creat Clearance w eGFR > 60 Random Glucose 123 H D Lactic Acid 1.8 Calcium 8.5 Total Bilirubin 1.3 H D AST 30 ALT 25 Alkaline Phosphatase 89 D Creatine Kinase 181 Creatine Kinase Index 0.5 CK-MB (CK-2) 0.99 Troponin I < 0.02 Total Protein 6.6 Albumin 3.5 Urine Color Urine Appearance Urine pH Ur Specific [place] Urine Protein Urine Glucose (UA) Urine Ketones Urine Blood Urine Nitrite Urine Bilirubin Urine Urobilinogen Ur Leukocyte Esterase 08/14/17 11:50 WBC RBC Hgb Hct MCV MCH MCHC RDW Plt Count MPV Absolute Neuts (auto) Neutrophils % Lymphocytes % Monocytes % Eosinophils % Basophils % Nucleated RBC % PT with INR INR PTT (Actin FS) VBG pH POC VBG pCO2 POC VBG pO2 Mixed VBG HCO3 Sodium Potassium Chloride Carbon Dioxide Anion Gap BUN Creatinine Creat Clearance w eGFR Random Glucose Lactic Acid 1.2 Calcium Total Bilirubin AST ALT Alkaline Phosphatase Creatine Kinase Creatine Kinase Index CK-MB (CK-2) Troponin I Total Protein Albumin Urine Color Urine Appearance Urine pH Ur Specific [place] Urine Protein Urine Glucose (UA) Urine Ketones Urine Blood Urine Nitrite Urine Bilirubin Urine Urobilinogen Ur Leukocyte Esterase ASSESSMENT/PLAN: Pt is a 61 y/o M with PMH HTN, nephrolithiasis who presented with 4 days of abd pain associated with 1 episode NBNB vomit, and numerous episodes of watery nonbloody diarrhea and subjective fevers. Pt was admitted for possible CAP and diarrheal illness. #CAP -No resp symptoms, but routine CXR showed L consolidation -CURB-65: 2 -Chest CT -Urine for Legionella -Got levaquin -Rocephin -Azithromycin #Diarrhea -last episode this morning -abd pain resolved -monitor -stool studies #Syncope -2 syncople episodes -? head trauma -CT head -likely 2/2 dehydration/volume depletion -got 4L NS in ED -NS @ 125 -Echo #Dehydration -2/2 decreased PO and diarrhea -4L nS in ed -NS #FEN -NS -mild hyponatremai -Na controlled diet #PPx -Hep Sub Q #Dispo -admit to tele Note Pt sees Dr. Perry Ky [phone] Tyler Wharton MD PGY-1 IM Visit type - Emergency Visit Emergency Visit: Yes ED Registration Date: 08/14/17 Care time: The patient presented to the Emergency Department on the above date and was hospitalized for further evaluation of their emergent condition. - New Patient This patient is new to me today: Yes Date on this admission: 08/14/17 - Critical Care Critical Care patient: No Hospitalist Screening - Colonoscopy Questionnaire Colonoscopy Questionnaire: Colonoscopy Questionnaire - Patient: 50 - 75 years old and never had a screening colonoscopy: Unknown History of colon or rectal polyps, or CA: Unknown History of IBD, Crohn's disease or UC: Unknown History of abdominal radiation therapy as a child: Unknown - Relative: 1 with colon or rectal CA, or polyps at age 60 or younger: Unknown Colon or rectal CA diagnosed at age 45 or younger: Unknown Multiple relatives with colon or rectal CA: Unknown - Outcome: Screening Result: Negative Screen
[2017-08-14] MEDS ORDERED: HEPARIN NA (PORCINE) 5,000 UNITS/ML 1ML VIAL ONE (17:38)
[2017-08-14] MEDS ORDERED: AZITHROMYCIN IVPB 250 ML IVPB ONE (17:39)
[2017-08-14] MEDS: AZITHROMYCIN IVPB 500 MG in DEXTROSE 5%-WATER - 250 ML IVPB SCH (17:48)
[2017-08-14] MEDS: HEPARIN NA (PORCINE) 5,000 UNITS/ML 1ML VIAL SQ SCH ×2 (17:48→21:18)
[2017-08-14] MEDS: SODIUM CHLORIDE 1,000 ML IV SCH (17:48)
[2017-08-15] MEDS: SODIUM CHLORIDE 1,000 ML IV SCH ×3 (04:00→15:30)
[2017-08-15] MEDS: HEPARIN NA (PORCINE) 5,000 UNITS/ML 1ML VIAL SQ SCH (05:27)
[2017-08-15 07:36] LABS: BASO % 0.4 % (0-2.0); EOS % 2.9 % (0-4.5); HEMATOCRIT 35.1 % (35.4-49); HEMOGLOBIN 11.9 GM/dL (11.7-16.9); LYMPH % 14.2 % (8-40); MCH 29.4 pg (25.7-33.7); MCHC 33.8 g/dl (32.0-35.9); MEAN CELL VOLUME 86.8 fl (80-96); MEAN PLT VOLUME 8.4 fl (7.5-11.1); MONO % 10.5 % (3.8-10.2); PLATELET COUNT 235 K/MM3 (134-434); RBC 4.04 M/mm3 (4.00-5.60); RDW 14.8 % (11.9-15.9)
[2017-08-15 08:01] LABS: ALBUMIN 2.8 g/dl (3.4-5.0); ANION GAP 7 (8-16); BLOOD UREA NITROGEN 16 mg/dL (7-18); CALCIUM 7.7 mg/dL (8.5-10.1); CHLORIDE 110 mmol/L (98-107); CO2 22 mmol/L (21-32); CREATININE 0.8 mg/dL (0.7-1.3); GLUCOSE,RANDOM 85 mg/dL (74-106); MAGNESIUM 1.7 mg/dL (1.8-2.4); PHOSPHOROUS 2.1 mg/dL (2.5-4.9); POTASSIUM 4.1 mmol/L (3.5-5.1); SGOT/AST 21 U/L (15-37); SGPT/ALT 19 U/L (12-78); SODIUM 139 mmol/L (136-145)
[2017-08-15 08:03] LABS: ALK PHOS 71 U/L (45-117); BILIRUBIN,TOTAL 0.4 mg/dL (0.2-1.0); TOT PROT 5.5 g/dl (6.4-8.2)
[2017-08-15] MEDS ORDERED: cefTRIAXone SODIUM 1 GM VIAL ONE (08:48)
[2017-08-15] MEDS ORDERED: DEXTROSE 5%-WATER - 50 ML IVPB ONE (08:48)
[2017-08-15] MEDS ORDERED: CEFTRIAXONE 1 GM in DEXTROSE 5%-WATER - 100 ML IVPB SCH (10:00)
[2017-08-15] MEDS ORDERED: CEFTRIAXONE 1 GM in DEXTROSE 5%-WATER - 50 ML IVPB SCH (10:00)
--- NOTE | 2017-08-15 11:08 | PN ---
Progress Note (short form) - Note Progress Note: PULMONARY CONSULTATION DICTATED 08/15/17 IMP LEFT LUNG MASSES LIKELY MALIGNANT ? COLON METS SYNCOPE LIKELY SECONDARY HYPOVOLEMIA/VASOVAGAL H/O COLON CA S/P SIGMOID RESECTION/SBO HTN PLAN IVF SCHEDULE FOR CT GUIDED BX LEFT LUNG MASS MONITOR LYTES O2 PRN GI EVALUATION CULTURES ABX DR CLOUD Problem List - Problems (1) Lung mass Code(s): R91.8 - OTHER NONSPECIFIC ABNORMAL FINDING OF LUNG FIELD (2) Syncope Code(s): R55 - SYNCOPE AND COLLAPSE (3) Colon cancer Code(s): C18.9 - MALIGNANT NEOPLASM OF COLON, UNSPECIFIED
--- NOTE | 2017-08-15 11:33 | CONS ---
DATE OF CONSULTATION: 08/15/2017 REFERRING PHYSICIAN: Alesha Woods MD HISTORY OF PRESENT ILLNESS: The patient is a 61-year-old male with a past medical history of hypertension, history of colon CA apparently diagnosed 3 years ago, resected and the postoperative course complicated by a small-bowel obstruction, who is a nonsmoker, admitted to [facility] with the complaint of abdominal pain, history of vomiting and an episode of syncope. Patient states he has been having abdominal pain since Friday. He also had an episode of brown nonbloody vomitus. His abdominal pain persisted throughout the week and he started developing increasing episodes of diarrhea. He apparently had a single episode of syncope. There was no history of head trauma. There was no history of travel. Patient presented to the emergency room as above. Apparently he had a 2nd syncopal episode in triage which was witnessed by the ED staff. At the time he was hypotensive with a systolic BP of 70. He was given IV fluids and subsequently transferred up to the medical telemetry unit for further monitoring. Patient underwent a CT scan of the chest which revealed 3 large lung masses in the left lung highly suspicious for malignancy. There was mediastinal adenopathy as well as bilateral adrenal masses suspicious for metastatic disease. Patient denies any history of shortness of breath. Denies any PND or orthopnea. Denies any chronic cough or hemoptysis. Denies any history of pneumonia. There is no history of occupational exposures to chemicals or fumes. PAST MEDICAL HISTORY: Again includes: 1. Colon CA, status post resection, status complicated by small-bowel obstruction. 2. History of hypertension. SOCIAL HISTORY: Born in the [place] and moved to the [facility] in the 1970s. A retired parking lot manager. No history of tobacco use. No history of occupational exposures. CURRENT MEDICATIONS: Include ceftriaxone; Zithromax. PHYSICAL EXAMINATION:General: The patient is a well-developed, well-nourished male, awake, alert, in no acute distress. Vital Signs: His blood pressure is 134/70, respiratory rate is 18, O2 saturation is 96% on room air. HEENT: Normocephalic, atraumatic. Neck: Supple. Heart: Regular with S1, S2. Chest: Few crackles on the left. Abdomen: Soft. Bowel sounds are positive. Extremities: No cyanosis or edema. LABORATORIES: WBC is 7, hemoglobin 11.9, hematocrit 35.1 with a platelet count of 235,000. Venous blood gas: 7.39, PCO2 of 38, a PO2 of 49. INR is 1.10. BUN 16, creatinine 0.8. Troponin is 0.02. Head CT: No evidence of intracranial pathology. CT scan of the chest again reveals 3 large left lung masses. There is mediastinal adenopathy and there are bilateral adrenal masses strongly suspicious for metastatic disease. IMPRESSION: 1. Syncopal episode most likely secondary to hypovolemia secondary to diarrhea. 2. Lung masses highly suspicious for carcinoma, neoplasia possible metastases, rule out infectious. 3. History of hypertension. PLAN: IV fluids. Telemetry monitoring. Will schedule for CT-guided biopsy of the left lower lobe mass. Further workup pending. Also obtain a CT scan of the abdomen. Thank you. MAKI CLOUD M.D. [id number]
[2017-08-15] MEDS ORDERED: NAPH,MB-DB/K PH,MBDB POWDER PACKET PO ONE (13:15)
[2017-08-15] MEDS ORDERED: MAGNESIUM 2GM/50ML STERILE WATER IVPB IVPB ONE (13:15)
--- NOTE | 2017-08-15 13:52 | PN ---
Physical Exam: SUBJECTIVE: Patient seen and examined at bedside. No acute events. Pt feels well today. No complaints. OBJECTIVE: Vital Signs Period Temp Pulse Resp BP Sys/Wyatt Pulse Ox Last 24 Hr 98.6 F-99.8 F 68-84 18-20 100-134/58-80 96-100 Gen: NAD HEENT: NCAT, PERRLA, EOMI Neck: Supple, no jvd, no bruits Cardiac: RRR, normal s1s2, no m/r/g Pulm: cta bl Abd: soft, nontender, + BS, Hwang neg Laboratory Results - last 24 hr 08/15/17 08/15/17 06:25 06:25 WBC 7.0 RBC 4.04 Hgb 11.9 D Hct 35.1 L MCV 86.8 MCH 29.4 MCHC 33.8 RDW 14.8 Plt Count 235 D MPV 8.4 Absolute Neuts (auto) 5.1 Neutrophils % 72.0 Lymphocytes % 14.2 D Monocytes % 10.5 H Eosinophils % 2.9 D Basophils % 0.4 Nucleated RBC % 0 Sodium 139 Potassium 4.1 Chloride 110 H Carbon Dioxide 22 Anion Gap 7 L BUN 16 D Creatinine 0.8 D Creat Clearance w eGFR > 60 Random Glucose 85 D Calcium 7.7 L Phosphorus 2.1 L Magnesium 1.7 L Total Bilirubin 0.4 D AST 21 D ALT 19 D Alkaline Phosphatase 71 D Total Protein 5.5 L Albumin 2.8 L Active Medications Generic Name Dose Route Start Last Admin Trade Name Freq PRN Reason Stop Dose Admin Azithromycin 500 mg/ Dextrose 250 mls @ 250 mls/hr 08/14/17 15:33 08/14/17 17 :48 IVPB 250 mls/hr DAILY BRIAN Administration Ceftriaxone Sodium 1 gm/ 50 mls @ 100 mls/hr 08/15/17 10:00 08/15/17 09:50 Dextrose IVPB 100 mls/hr DAILY BRIAN Administration Protocol Sodium Chloride 1,000 mls @ 125 mls/hr 08/14/17 15:45 08/15/17 04:00 Normal Saline - IV 125 mls/hr ASDIR BRIAN Administration ASSESSMENT/PLAN: Pt is a 61 y/o M with PMH HTN, nephrolithiasis who presented with 4 days of abd pain associated with 1 episode NBNB vomit, and numerous episodes of watery nonbloody diarrhea and subjective fevers. Pt was admitted for possible CAP and diarrheal illness. #Metastatic disease -no pulm complaints -CXR with L consolidation -CT chest: 3 large lung masses, mediastinal LAD, b/l adrenal masses. All strongly suspicious for malignancy -CTAP: acute colitis, unlikely neoplasia -Pulm consult -Heme/Onc consult -IR to do Bx on Mon #CAP -No resp symptoms, but routine CXR showed L consolidation -CURB-65: 2 -Chest CT -Urine for Legionella -Got levaquin -Rocephin -Azithromycin #Diarrhea -last episode 08/14/2017 -abd pain resolved -monitor -stool studies: pending Salmonella/Shigella Culture #Syncope -2 syncople episodes -? head trauma -CT head negative -likely 2/2 dehydration/volume depletion -got 4L NS in ED -NS @ 125 -Echo #Dehydration -2/2 decreased PO and diarrhea -4L nS in ed -NS #FEN -NS -hypophos, hypomag. Repleting -Na controlled diet #PPx -Hep Sub Q #Dispo -admit to tele Note Pt sees Dr. Perry Ky [phone] Tyler Wharton MD PGY-1 IM Visit type - Emergency Visit Emergency Visit: No - New Patient This patient is new to me today: No - Critical Care Critical Care patient: No - Discharge Referral Referred to [facility] Med [facility].C[facility] No
--- NOTE | 2017-08-15 14:48 | CON.GI ---
Consult Consult Specialty:: GI Reason for Consultation:: diarrhea, abnormal CAT scan, history of colon cancer - History of Present Illness History of Present Illness: Chart is reviewed. Events noted. As per initial intake: Pt is a 61 y/o M with PMH HTN, colon CA (diagnosed on routine screen and resected was a 6-7 years ago , complicated by sbo). who presented to ED with complaint of n/v/d and an episode of syncope. Per pt he began having abdominal pain and a single episode of brown nonbloody vomit on Mon. Abd pain persisted throughout the week, and Tues he began having watery diarrhea, several episodes per day. He had a single episode of syncope (unknown if there was head trauma, though pt has no pain in the head) at home this morning. After arriving in the hospital, pt had a second syncople episode in triage. It was witnessed by ED staff. BP at that time was 70 systolic. Pt was given 4 L NS, Levaquin x1, chang, benign ekg in ED. Pt also had CXR showing L consolidation and retrocardiac opacity. The patient's and son at the bedside. At the time of this encounter the patient appears comfortable. Ovaries no GI related complaints. Denies abdominal pain, nausea. Tolerated to regular diet. Corroborate stable history. Had yearly colonoscopy up until year 2014. Reports no recent melena , hematochezia, changes to cal[place], weight loss, dysphagia, odynophagia, hematemesis. Patient reports good appetite. Denies recent exposure to heal, travel, changes in diet, eating out, new medications, URI symptoms. CAT scan showed pulmonary, adrenal lesions, focally thickened, mildly dilated small bowel, fluid in the colon, evidence of colon surgery. The patient had normal white count, hemoglobin, electrolytes, transaminases, alk phos and minimally elevated total bili, which normalized on subsequent testing. - History Source History Provided By: Patient, Family Member - Alcohol/Substance Use Hx Alcohol Use: No - Smoking History Smoking history: Never smoked Have you smoked in the past 12 months: No Aproximately how many cigarettes per day: 0 Home Medications - Allergies Allergies/Adverse Reactions: Allergies Allergy/AdvReac Type Severity Reaction Status Date / Time No Known Allergies Allergy Verified 08/14/17 09:45 - Home Medications Home Medications: Ambulatory Orders Carvedilol 6.25 mg PO BID 07/02/17 Losartan Potassium 100 mg PO DAILY 07/02/17 Nifedipine [Procardia Xl] 30 mg PO DAILY 08/14/17 Family Disease History - Family Disease History Family History: Unremarkable Review of Systems Findings/Remarks: As per H&P, HPI and ED records Physical Exam-GI Vital Signs: Vital Signs Temperature 98.8 F 08/15/17 14:00 Pulse Rate 81 08/15/17 14:00 Respiratory Rate 18 08/15/17 14:00 Blood Pressure 149/78 08/15/17 14:00 O2 Sat by Pulse Oximetry (%) 96 08/15/17 08:03 Constitutional: Yes: Well Nourished, No Distress, Calm Eyes: Yes: Conjunctiva Clear HENT: Yes: Atraumatic Neck: Yes: Supple Cardiovascular: Yes: Regular Rate and Rhythm Respiratory: Yes: Regular Gastrointestinal Inspection: No: Ascites, Distention ...Auscultate: Yes: Normoactive Bowel Sounds ...Palpate: Yes: Soft. No: Firm/Rigid, Guarding, Mass, Tenderness, Tenderness, Epigastium, Tenderness, Rebound Neurological: Yes: Alert, Oriented Labs: CBC, BMP 08/15/17 06:25 08/15/17 06:25 INR, PTT INR 1.10 (0.82-1.09) 08/14/17 10:12 Laboratory Last Values WBC 7.0 K/mm3 (4.0-10.0) 08/15/17 06:25 RBC 4.04 M/mm3 (4.00-5.60) 08/15/17 06:25 Hgb 11.9 GM/dL (11.7-16.9) D 08/15/17 06:25 Hct 35.1 % (35.4-49) L 08/15/17 06:25 MCV 86.8 fl (80-96) 08/15/17 06:25 MCH 29.4 pg (25.7-33.7) 08/15/17 06:25 MCHC 33.8 g/dl (32.0-35.9) 08/15/17 06:25 RDW 14.8 % (11.9-15.9) 08/15/17 06:25 Plt Count 235 K/MM3 (134-434) D 08/15/17 06:25 MPV 8.4 fl (7.5-11.1) 08/15/17 06:25 Absolute Neuts (auto) 5.1 # 08/15/17 06:25 Neutrophils % 72.0 % (42.8-82.8) 08/15/17 06:25 Lymphocytes % 14.2 % (8-40) D 08/15/17 06:25 Monocytes % 10.5 % (3.8-10.2) H 08/15/17 06:25 Eosinophils % 2.9 % (0-4.5) D 08/15/17 06:25 Basophils % 0.4 % (0-2.0) 08/15/17 06:25 Nucleated RBC % 0 % (0-0) 08/15/17 06:25 PT with INR 12.40 SEC (9.7-13.0) 08/14/17 10:12 INR 1.10 (0.82-1.09) 08/14/17 10:12 PTT (Actin FS) 32.3 SECONDS (26.9-34.4) 08/14/17 10:12 VBG pH 7.39 (7.32-7.42) 08/14/17 10:20 POC VBG pCO2 38.5 mmHg (38-52) 08/14/17 10:20 POC VBG pO2 49.2 mmHg (28-48) H 08/14/17 10:20 Mixed VBG HCO3 22.8 meq/L (19-25) 08/14/17 10:20 Sodium 139 mmol/L (136-145) 08/15/17 06:25 Potassium 4.1 mmol/L (3.5-5.1) 08/15/17 06:25 Chloride 110 mmol/L (98-107) H 08/15/17 06:25 Carbon Dioxide 22 mmol/L (21-32) 08/15/17 06:25 Anion Gap 7 (8-16) L 08/15/17 06:25 BUN 16 mg/dL (7-18) D 08/15/17 06:25 Creatinine 0.8 mg/dL (0.7-1.3) D 08/15/17 06:25 Creat Clearance w eGFR > 60 (>60) 08/15/17 06:25 Random Glucose 85 mg/dL (74-106) D 08/15/17 06:25 Lactic Acid 1.2 mmol/L (0.0-2.0) 08/14/17 11:50 Calcium 7.7 mg/dL (8.5-10.1) L 08/15/17 06:25 Phosphorus 2.1 mg/dL (2.5-4.9) L 08/15/17 06:25 Magnesium 1.7 mg/dL (1.8-2.4) L 08/15/17 06:25 Total Bilirubin 0.4 mg/dL (0.2-1.0) D 08/15/17 06:25 AST 21 U/L (15-37) D 08/15/17 06:25 ALT 19 U/L (12-78) D 08/15/17 06:25 Alkaline Phosphatase 71 U/L (45-117) D 08/15/17 06:25 Creatine Kinase 181 IU/L (39-308) 08/14/17 10:14 Creatine Kinase Index 0.5 % (0.0-5.0) 08/14/17 10:14 CK-MB (CK-2) 0.99 ng/mL (0.5-3.6) 08/14/17 10:14 Troponin I < 0.02 ng/ml (0.00-0.05) 08/14/17 10:14 Total Protein 5.5 g/dl (6.4-8.2) L 08/15/17 06:25 Albumin 2.8 g/dl (3.4-5.0) L 08/15/17 06:25 Urine Color Dk yellow 08/14/17 10:12 Urine Appearance Clear 08/14/17 10:12 Urine pH 5.0 (5.0-8.0) 08/14/17 10:12 Ur Specific [place] 1.027 (1.001-1.035) 08/14/17 10:12 Urine Protein Negative (NEGATIVE) 08/14/17 10:12 Urine Glucose (UA) Negative (NEGATIVE) 08/14/17 10:12 Urine Ketones 1+ (NEGATIVE) H 08/14/17 10:12 Urine Blood Negative (NEGATIVE) 08/14/17 10:12 Urine Nitrite Negative (NEGATIVE) 08/14/17 10:12 Urine Bilirubin Negative (<2.0 mg/dL) 08/14/17 10:12 Urine Urobilinogen 2.0 mg/dL (0.2-1.0) 08/14/17 10:12 Ur Leukocyte Esterase Negative (NEGATIVE) 08/14/17 10:12 Imaging - Results Cat Scan: Report Reviewed Problem List - Problems (1) History of colon cancer Code(s): Z85.038 - PERSONAL HISTORY OF MALIGNANT NEOPLASM OF LARGE INTESTINE (2) Enteritis Code(s): K52.9 - NONINFECTIVE GASTROENTERITIS AND COLITIS, UNSPECIFIED Assessment/Plan a 62-year-old male with a history of colon cancer presents with acute onset nausea, vomiting and watery diarrhea. The initial workup in the ED revealed lung and adrenal gland lesions suspicious for malignancy, symmetrically thickened and slightly dilated small bowel in the abdomen and pelvis, fluid in the colon consistent with diarrheal illness. Recent history reveals no obvious red flags. No obvious respiratory symptoms, for compromise noted. As discussed with the patient and his , to rule out infectious etiologies of the diarrhea, obtain tumor markers and plan EGD and colonoscopy on Friday. Regular diet now. Clear liquids on Friday. Pulmonary consult.
--- NOTE | 2017-08-15 15:00 | PN ---
Teaching Attending Note Name of Resident: Tyler Wharton ATTENDING PHYSICIAN STATEMENT I saw and evaluated the patient. I reviewed the resident's note and discussed the case with the resident. I agree with the resident's findings and plan as documented with exceptions below. SUBJECTIVE: Patient seen and examined. 1 loose BM this AM. no nausea, vomiting, abdominal pain, fevers, chills, cough, dyspnea or respiratory symptoms. OBJECTIVE: Vital Signs Period Temp Pulse Resp BP Sys/Wyatt Pulse Ox Last 24 Hr 98.8 F-99.8 F 70-84 18-20 100-149/58-80 96-98 Intake & Output 08/12/17 08/13/17 08/14/17 08/15/17 23:59 23:59 23:59 23:59 [place] 68207 1620 Output Total 1820 1200 Balance 8840 420 Weight 180 lb General: lying in bed, no acute distress Abdomen:soft, NT throughout, ND, positive bowel sounds Extremities: no edema Chest: positive air entry, no rales or wheezing Home Medications Medication Instructions Recorded Carvedilol 6.25 mg PO BID 07/02/17 Losartan Potassium 100 mg PO DAILY 07/02/17 Nifedipine [Procardia Xl] 30 mg PO DAILY 08/14/17 Active Medications Sodium Chloride (Normal Saline -) 1,000 mls @ 125 mls/hr IV ASDIR BRIAN Last Admin: 08/15/17 14:00 Dose: 125 mls/hr Metronidazole (Flagyl 500mg Premixed Ivpb -) 500 mg in 100 mls @ 100 mls/hr IVPB Q8H-IV BRIAN Levofloxacin (Levaquin 500 Mg Premixed Ivpb -) 500 mg in 100 mls @ 100 mls/hr IVPB DAILY [facility]; Protocol Abnormal Lab Results 08/15/17 08/15/17 06:25 06:25 Hct 35.1 L Monocytes % 10.5 H Chloride 110 H Anion Gap 7 L Calcium 7.7 L Phosphorus 2.1 L Magnesium 1.7 L Total Protein 5.5 [address] chest/A/P results reviewed ASSESSMENT AND PLAN: 61 yom with pMHx of Colon Ca s/p sigmoid resection, SBO , HTN, admitted with syncope x 2, hypotension and nausea/vomitting/diarrhea. -Syncope, suspect vasovagal compounded by severe hypovolumia -Nausea, vomiting/diarrhea, ?acute gastroenteritis -Lung massess -Adrenal masses, likely metastatic disease -HTN -h/o Colon ca s/p sigmoid resection/SBO Plan: Pulmonary input appreciated, CT guided biopsy on Friday. Oncology consult. CT A/P noted, GI consult, check stool c difficile, start levaquin/flagyl for now. Decrease IVF, encourage po intake. Stool studies noted. 2D echo noted, CT chest noted. Resume coreg. Hold ARB/nifedipine for now. DVTPPx with lovenox, hold for biopsy on friday. Dispo pending clinical improvement and resolution of symptoms.
[2017-08-15] MEDS: AZITHROMYCIN IVPB 500 MG in DEXTROSE 5%-WATER - 250 ML IVPB SCH (15:30)
[2017-08-15] MEDS ORDERED: CARVEDILOL 6.25 MG TABLET (FP) PO ONE (16:13)
--- NOTE | 2017-08-15 19:27 | CONSULT ---
Consult - text type - Consultation Consultation Note: Pt is a 61 y/o M with PMH HTN, colon CA (diagnosed on routine screen and resected was a 6-7 years ago, complicated by sbo). who presented to ED with complaint of n/v/d and an episode of syncope. Per pt he began having abdominal pain and a single episode of brown nonbloody vomit on Mon. Abd pain persisted throughout the week, and Tues he began having watery diarrhea, several episodes per day. He had a single episode of syncope After arriving in the hospital, pt had a second syncople episode in triage. It was witnessed by ED staff. BP at that time was 70 systolic. Pt was given 4 L NS, Levaquin x1, chang, benign ekg in ED. Pt also had CXR showing L consolidation and retrocardiac opacity. At the time of this encounter the patient appears comfortable. CAT scan showed pulmonary, adrenal lesions, focally thickened, mildly dilated small bowel, fluid in the colon, evidence of colon surgery. - History Source History Provided By: Patient, Family Member - Smoking History Smoking history: Never smoked - Allergies Allergies/Adverse Reactions: Allergies Allergy/AdvReac Type Severity Reaction Status Date / Time No Known Allergies Allergy Verified 08/14/17 09:45 - Home Medications Home Medications: Ambulatory Orders Carvedilol 6.25 mg PO BID 07/02/17 Losartan Potassium 100 mg PO DAILY 07/02/17 Nifedipine [Procardia Xl] 30 mg PO DAILY 08/14/17 Family Disease History - Family Disease History Family History: Unremarkable Physical Exam-GI Vital Signs: Last Vital Signs Temp Pulse Resp BP Pulse Ox 98.8 F 81 18 149/78 96 08/15/17 14:00 08/15/17 14:00 08/15/17 14:00 08/15/17 14:00 08/15/17 08:03 Cor: RSR, No murmurs, No gallops Lungs: Clear to P&A Abd: Soft, Normal bowel sounds, No organomegaly Ext:No significant edema Abnormal Lab Results 08/15/17 08/15/17 06:25 06:25 Hct 35.1 L Monocytes % 10.5 H Chloride 110 H Anion Gap 7 L Calcium 7.7 L Phosphorus 2.1 L Magnesium 1.7 L Total Protein 5.5 L Albumin 2.8 L Home Medication List Medication Instructions Recorded Confirmed Type Carvedilol 6.25 mg PO BID 07/02/17 08/14/17 History Losartan Potassium 100 mg PO DAILY 07/02/17 08/14/17 History Nifedipine [Procardia Xl] 30 mg PO DAILY 08/14/17 08/14/17 History Active Medications Generic Name Dose Route Start Last Admin Trade Name Gurwinder PRN Reason Stop Dose Admin Bisacodyl 20 mg 08/17/17 12:00 Dulcolax - PO 08/17/17 12:01 ONCE ONE Carvedilol 6.25 mg 08/15/17 22:00 Coreg - PO BID BRIAN Metronidazole 500 mg in 100 mls @ 100 mls/hr 08/15/17 18:00 08/15/17 17:03 Flagyl 500mg Premixed Ivpb - IVPB 100 mls/hr Q8H-IV BRIAN Administration Levofloxacin 500 mg in 100 mls @ 100 mls/hr 08/16/17 10:00 Levaquin 500 Mg Premixed Ivpb - IVPB DAILY BRIAN Protocol Sodium Chloride 1,000 mls @ 100 mls/hr 08/15/17 15:02 08/15/17 15:30 Normal Saline - IV 100 mls/hr ASDIR BRIAN Administration Polyethylene Glycol/Electrolytes 4,000 ml 08/17/17 17:00 Golytely Solution - PO 08/17/17 17:01 ONCE ONE Assessment/Plan Patient is a 62-year-old male with history of colon cancer presents with acute onset nausea, vomiting watery diarrhea, presyncope. h/o colon cancer 7yrs. ago--resected at [facility]. Did not receive any adjuvnt chemotherapy Imaging reveals larg JOSE mass ( 5.6cm) and 2 LLL masses and adrenal masses, mild multifocal small bowel wall thickening Findings suspicious for lung cancer with mets vs lung mets and probably infectious enteritis For w/u of enterocolitis per GI Will need biopsy of lung mass via IR discussed findings with patient
[2017-08-15] MEDS: CARVEDILOL 6.25 MG TABLET (FP) PO SCH (21:22)
[2017-08-16] MEDS: SODIUM CHLORIDE 1,000 ML IV SCH ×2 (02:45→11:41)
[2017-08-16 07:27] LABS: BASO % 0.3 % (0-2.0); EOS % 4.4 % (0-4.5); HEMATOCRIT 34.2 % (35.4-49); HEMOGLOBIN 11.6 GM/dL (11.7-16.9); LYMPH % 14.3 % (8-40); MCH 29.4 pg (25.7-33.7); MEAN CELL VOLUME 86.5 fl (80-96); MEAN PLT VOLUME 8.5 fl (7.5-11.1); MONO % 12.1 % (3.8-10.2); NEUT % 68.9 % (42.8-82.8); PLATELET COUNT 237 K/MM3 (134-434); RBC 3.96 M/mm3 (4.00-5.60); RDW 14.8 % (11.9-15.9); WHITE BLOOD COUNT 6.5 K/mm3 (4.0-10.0)
[2017-08-16 08:16] LABS: ALBUMIN 2.9 g/dl (3.4-5.0); ALK PHOS 71 U/L (45-117); ANION GAP 6 (8-16); BILIRUBIN,TOTAL 0.4 mg/dL (0.2-1.0); BLOOD UREA NITROGEN 8 mg/dL (7-18); CALCIUM 7.7 mg/dL (8.5-10.1); CHLORIDE 109 mmol/L (98-107); CO2 25 mmol/L (21-32); CREATININE 0.8 mg/dL (0.7-1.3); GLUCOSE,RANDOM 88 mg/dL (74-106); PHOSPHOROUS 2.7 mg/dL (2.5-4.9); POTASSIUM 3.8 mmol/L (3.5-5.1); SGOT/AST 22 U/L (15-37); SGPT/ALT 16 U/L (12-78); SODIUM 140 mmol/L (136-145); TOT PROT 5.6 g/dl (6.4-8.2)
[2017-08-16] MEDS: CARVEDILOL 6.25 MG TABLET (FP) PO SCH ×2 (09:13→21:30)
--- NOTE | 2017-08-16 09:15 | PN ---
Teaching Attending Note Name of Resident: Tyler Wharton ATTENDING PHYSICIAN STATEMENT I saw and evaluated the patient. I reviewed the resident's note and discussed the case with the resident. I agree with the resident's findings and plan as documented with exceptions below. SUBJECTIVE: Patient seen and examined, no further diarrhea, nausea, vomiting, eating PO. No dyspnea, new fevers, chills or cough. Feels well. OBJECTIVE: Vital Signs Period Temp Pulse Resp BP Sys/Wyatt Pulse Ox Last 24 Hr 98.4 F-99.5 F 64-85 18-20 133-158/74-85 95 Intake & Output 08/13/17 08/14/17 08/15/17 08/16/17 23:59 23:59 23:59 23:59 Intake Total 83580 3270 1300 Output Total 1820 1600 Balance 8840 1670 1300 Weight 180 lb General: sitting in bed in no acute distress Chest: CTAB, no rales or wheezing abdomen:soft, obese, NT throughout, positive bowel sounds extremities: no edema Home Medications Medication Instructions Recorded Carvedilol 6.25 mg PO BID 07/02/17 Losartan Potassium 100 mg PO DAILY 07/02/17 Nifedipine [Procardia Xl] 30 mg PO DAILY 08/14/17 Active Medications Bisacodyl (Dulcolax -) 20 mg PO ONCE ONE Stop: 08/17/17 12:01 Carvedilol (Coreg -) 6.25 mg PO BID REPLACED BY [facility] Last Admin: 08/15/17 21:22 Dose: 6.25 mg Enoxaparin Sodium (Lovenox -) 40 mg SQ ONCE ONE Stop: 08/16/17 09:14 Metronidazole (Flagyl 500mg Premixed Ivpb -) 500 mg in 100 mls @ 100 mls/hr IVPB Q8H-IV BRIAN Last Admin: 08/16/17 01:15 Dose: 100 mls/hr Levofloxacin (Levaquin 500 Mg Premixed Ivpb -) 500 mg in 100 mls @ 100 mls/hr IVPB DAILY REPLACED BY [facility]; Protocol Sodium Chloride (Normal Saline -) 1,000 mls @ 100 mls/hr IV ASDIR BRIAN Last Admin: 08/16/17 02:45 Dose: 100 mls/hr Polyethylene Glycol/Electrolytes (Golytely Solution -) 4,000 ml PO ONCE ONE Stop: 08/17/17 17:01 Laboratory Results - last 24 hr 08/16/17 08/16/17 05:30 05:30 WBC 6.5 RBC 3.96 L Hgb 11.6 L Hct 34.2 L MCV 86.5 MCH 29.4 MCHC 34.0 RDW 14.8 Plt Count 237 MPV 8.5 Absolute Neuts (auto) 4.5 Neutrophils % 68.9 Lymphocytes % 14.3 Monocytes % 12.1 H Eosinophils % 4.4 Basophils % 0.3 Nucleated RBC % 0 Sodium 140 Potassium 3.8 Chloride 109 H Carbon Dioxide 25 Anion Gap 6 L BUN 8 D Creatinine 0.8 Creat Clearance w eGFR > 60 Random Glucose 88 Calcium 7.7 L Phosphorus 2.7 D Magnesium 2.0 Total Bilirubin 0.4 AST 22 ALT 16 Alkaline Phosphatase 71 Total Protein 5.6 L Albumin 2.9 L Microbiology 08/14/17 15:20 Urine For Antigen Detection Legionella Antigen - Final 08/14/17 15:20 Urine For Antigen Detection Streptococcus pneumoniae Antigen (M - Final 08/14/17 10:00 Blood - Peripheral Venous Blood Culture - Preliminary NO GROWTH OBTAINED AFTER 24 HOURS, INCUBATION TO CONTINUE FOR 4 DAYS. 08/14/17 10:00 Blood - Peripheral Venous Blood Culture - Preliminary NO GROWTH OBTAINED AFTER 24 HOURS, INCUBATION TO CONTINUE FOR 4 DAYS. 08/14/17 10:20 Stool Salmonella/Shigella Culture - Preliminary Pending Organism 08/14/17 10:20 Stool Yersinia Culture - Preliminary NO ENTERIC PATHOGENS, 24 HOURS, ON PRIMARY PLATES 08/14/17 10:20 Stool Vibrio Culture - Final NO GROWTH OF VIBRIO SPECIES OBTAINED 08/14/17 10:20 Stool Escherichia coli 0157 Culture - Final NO GROWTH OF E COLI 0157 OBTAINED 08/14/17 10:00 Urine - Urine - Catheterized Urine Culture - Final NO GROWTH OBTAINED 08/14/17 15:40 Nasopharyngeal Swab Influenza Types A,B Antigen - Preliminary 08/14/17 15:40 Nasopharyngeal Swab - Preliminary ASSESSMENT AND PLAN: 61 yom with pMHx of Colon Ca s/p sigmoid resection, SBO , HTN, admitted with syncope x 2, hypotension and nausea/vomitting/diarrhea. -Syncope, suspect vasovagal compounded by severe hypovolumia -Nausea, vomiting/diarrhea, Likely Acute gastroenteritis -CLARITA, from above, resolved -Lung masses, metastatic disease from Colon Ca vs primary -Adrenal masses, likely metastatic disease -HTN -h/o Colon ca s/p sigmoid resection/SBO Plan: Pulmonary input appreciated, CT guided biopsy on Friday. Oncology input noted. GI consult appreciated, plan for EGD/colonoscopy on friday. levaquin/flagyl day 2, d/c based on colonoscopy findings. Decrease IVF, encourage po intake. Stool studies noted. 2D echo noted, CT chest noted. Continue coreg. Resume nifedipine/ARB. DVTPPx with lovenox today, hold for biopsy tomorrow and Friday. Dispo pending clinical improvement and resolution of symptoms.
[2017-08-16] MEDS: NIFEdipine E.R. 30 MG TABLET (FP) PO SCH (09:35)
[2017-08-16] MEDS: LOSARTAN POTASSIUM 50 MG TABLET (FP) PO SCH (09:35)
--- NOTE | 2017-08-16 09:37 | PN ---
Physical Exam: SUBJECTIVE: Patient seen and examined at bedside. No acute events. Pt feels well today. No complaints. OBJECTIVE: Vital Signs Period Temp Pulse Resp BP Sys/Wyatt Pulse Ox Last 24 Hr 98.4 F-99.5 F 64-85 18-20 133-158/74-85 95 Gen: NAD HEENT: NCAT, PERRLA, EOMI Neck: Supple, no jvd, no bruits Cardiac: RRR, normal s1s2, no m/r/g Pulm: cta bl Abd: soft, nontender, + BS, Hwang neg Ext: 2+ pulses, no edema Laboratory Results - last 24 hr 08/16/17 08/16/17 05:30 05:30 WBC 6.5 RBC 3.96 L Hgb 11.6 L Hct 34.2 L MCV 86.5 MCH 29.4 MCHC 34.0 RDW 14.8 Plt Count 237 MPV 8.5 Absolute Neuts (auto) 4.5 Neutrophils % 68.9 Lymphocytes % 14.3 Monocytes % 12.1 H Eosinophils % 4.4 Basophils % 0.3 Nucleated RBC % 0 Sodium 140 Potassium 3.8 Chloride 109 H Carbon Dioxide 25 Anion Gap 6 L BUN 8 D Creatinine 0.8 Creat Clearance w eGFR > 60 Random Glucose 88 Calcium 7.7 L Phosphorus 2.7 D Magnesium 2.0 Total Bilirubin 0.4 AST 22 ALT 16 Alkaline Phosphatase 71 Total Protein 5.6 L Albumin 2.9 L Active Medications Generic Name Dose Route Start Last Admin Trade Name Freq PRN Reason Stop Dose Admin Bisacodyl 20 mg 08/17/17 12:00 Dulcolax - PO 08/17/17 12:01 ONCE ONE Carvedilol 6.25 mg 08/15/17 22:00 08/16/17 09:13 Coreg - PO 6.25 mg BID BRIAN Administration Enoxaparin Sodium 40 mg 08/16/17 10:00 Lovenox - SQ 08/16/17 10:01 ONCE ONE Metronidazole 500 mg in 100 mls @ 100 mls/hr 08/15/17 18:00 08/16/17 09:13 Flagyl 500mg Premixed Ivpb - IVPB 100 mls/hr Q8H-IV BRIAN Administration Levofloxacin 500 mg in 100 mls @ 100 mls/hr 08/16/17 10:00 08/16/17 09:13 Levaquin 500 Mg Premixed Ivpb - IVPB 100 mls/hr DAILY BRIAN Administration Protocol Sodium Chloride 1,000 mls @ 75 mls/hr 08/16/17 09:16 Normal Saline - IV ASDIR BRIAN Losartan Potassium 100 mg 08/16/17 10:00 Cozaar - PO DAILY BRIAN Nifedipine 30 mg 08/16/17 10:00 Procardia Xl - PO DAILY BRIAN Polyethylene Glycol/Electrolytes 4,000 ml 08/17/17 17:00 Golytely Solution - PO 08/17/17 17:01 ONCE ONE ASSESSMENT/PLAN: Pt is a 61 y/o M with PMH HTN, nephrolithiasis who presented with 4 days of abd pain associated with 1 episode NBNB vomit, and numerous episodes of watery nonbloody diarrhea and subjective fevers. Pt was admitted for possible CAP and diarrheal illness. #Lung mass -initially suspected CAP -No resp symptoms, but routine CXR showed L consolidation -CURB-65: 2 -Chest CT revealed 3 L lung mass, b/l adrenal masses and LN involvement suggestive of metastatic disease -Urine for Legionella/Strep negative -Got levaquin in ED -Pulm consulted -For IR biopsy on Mon #Diarrhea -likely acute gastroenteritis -abd pain resolved -monitor -stool studies pending -Levaquin -Flagyl -GI consulted -for EGD/Colonoscopy Mon #Syncope -2 syncople episodes -? head trauma -CT head -likely 2/2 dehydration/volume depletion -got 4L NS in ED -NS @ 125 -Echo #Dehydration -2/2 decreased PO and diarrhea -4L nS in ed -NS #FEN -NS -lytes wnl -Reg diet. Clears 08/17/2017. NPO after midnight Friday night #PPx -Hep Sub Q #Dispo -admit to tele Note Pt sees Dr. Perry [place] [phone] Tyler Wharton MD PGY-1 IM Visit type - Emergency Visit Emergency Visit: No - New Patient This patient is new to me today: No - Critical Care Critical Care patient: No - Discharge Referral Referred to [facility] Med [facility] No
[2017-08-16] MEDS ORDERED: ENOXAPARIN NA (PORCINE) 40 MG/0.4 ML DISP.SYRIN SQ ONE (10:00)
--- NOTE | 2017-08-16 13:27 | PN ---
Progress Note (short form) - Note Progress Note: Resting in NAD on RA. No CP or SOB. Intake & Output 08/13/17 08/14/17 08/15/17 08/16/17 23:59 23:59 23:59 23:59 Intake Total 07457 3270 1300 Output Total 1820 1600 Balance 8840 1670 1300 Weight 180 lb Last Vital Signs Temp Pulse Resp BP Pulse Ox 98.4 F 68 18 158/85 96 08/16/17 09:11 08/16/17 09:11 08/16/17 09:11 08/16/17 09:11 08/16/17 09:15 Active Medications Bisacodyl (Dulcolax -) 20 mg PO ONCE ONE Stop: 08/17/17 12:01 Carvedilol (Coreg -) 6.25 mg PO BID [facility] Last Admin: 08/16/17 09:13 Dose: 6.25 mg Metronidazole (Flagyl 500mg Premixed Ivpb -) 500 mg in 100 mls @ 100 mls/hr IVPB Q8H-IV BRIAN Last Admin: 08/16/17 09:13 Dose: 100 mls/hr Levofloxacin (Levaquin 500 Mg Premixed Ivpb -) 500 mg in 100 mls @ 100 mls/hr IVPB DAILY [facility]; Protocol Last Admin: 08/16/17 09:13 Dose: 100 mls/hr Sodium Chloride (Normal Saline -) 1,000 mls @ 75 mls/hr IV ASDIR BRIAN Last Admin: 08/16/17 11:41 Dose: 75 mls/hr Losartan Potassium (Cozaar -) 100 mg PO DAILY [facility] Last Admin: 08/16/17 09:35 Dose: 100 mg Nifedipine (Procardia Xl -) 30 mg PO DAILY [facility] Last Admin: 08/16/17 09:35 Dose: 30 mg Polyethylene Glycol/Electrolytes (Golytely Solution -) 4,000 ml PO ONCE ONE Stop: 08/17/17 17:01 Gen: NAD HEENT: NCAT Neck: Supple, (-) JVD Cardiac: RRR, S1S2 Pulm: Clear Abd: soft, nontender, + BS Ext: 2+ pulses, no edema Laboratory Results - last 24 hr 08/16/17 08/16/17 05:30 05:30 WBC 6.5 RBC 3.96 L Hgb 11.6 L Hct 34.2 L MCV 86.5 MCH 29.4 MCHC 34.0 RDW 14.8 Plt Count 237 MPV 8.5 Absolute Neuts (auto) 4.5 Neutrophils % 68.9 Lymphocytes % 14.3 Monocytes % 12.1 H Eosinophils % 4.4 Basophils % 0.3 Nucleated RBC % 0 Sodium 140 Potassium 3.8 Chloride 109 H Carbon Dioxide 25 Anion Gap 6 L BUN 8 D Creatinine 0.8 Creat Clearance w eGFR > 60 Random Glucose 88 Calcium 7.7 L Phosphorus 2.7 D Magnesium 2.0 Total Bilirubin 0.4 AST 22 ALT 16 Alkaline Phosphatase 71 Total Protein 5.6 L Albumin 2.9 L Problem List - Problems (1) Lung mass Code(s): R91.8 - OTHER NONSPECIFIC ABNORMAL FINDING OF LUNG FIELD (2) Syncope Code(s): R55 - SYNCOPE AND COLLAPSE (3) Colon cancer Code(s): C18.9 - MALIGNANT NEOPLASM OF COLON, UNSPECIFIED IMP LEFT LUNG MASSES LIKELY MALIGNANT ? COLON METS SYNCOPE LIKELY SECONDARY HYPOVOLEMIA/VASOVAGAL H/O COLON CA S/P SIGMOID RESECTION/SBO HTN PLAN IVF SCHEDULED FOR CT GUIDED BX LEFT LUNG MASS ON FRIDAY O2 PRN GI EVALUATION CONSIDER D/C ABX DR HERNÁNDEZ
[2017-08-17] MEDS: SODIUM CHLORIDE 1,000 ML IV SCH ×2 (00:44→09:11)
[2017-08-17 07:54] LABS: BASO % 0.4 % (0-2.0); EOS % 5.4 % (0-4.5); HEMATOCRIT 35.6 % (35.4-49); HEMOGLOBIN 12.1 GM/dL (11.7-16.9); LYMPH % 15.9 % (8-40); MCH 29.1 pg (25.7-33.7); MCHC 33.8 g/dl (32.0-35.9); MEAN CELL VOLUME 86.1 fl (80-96); MEAN PLT VOLUME 8.3 fl (7.5-11.1); MONO % 13.1 % (3.8-10.2); NEUT % 65.2 % (42.8-82.8); PLATELET COUNT 268 K/MM3 (134-434); RBC 4.14 M/mm3 (4.00-5.60); RDW 14.6 % (11.9-15.9)
[2017-08-17 08:06] LABS: CARCINOEMBRYONIC ANTIGEN 14.4 ng/mL (0.0-4.7)
--- NOTE | 2017-08-17 08:22 | PN ---
Physical Exam: SUBJECTIVE: Patient seen and examined, some diarrhea with eating today. no fevers, chills, nausea, vomiting, abdominal pain OBJECTIVE: Vital Signs Period Temp Pulse Resp BP Sys/Wyatt Pulse Ox Last 24 Hr 98.0 F-99.2 F 68-78 18-20 128-158/62-85 96-98 General:sitting in bed having lunch Chest: CTAB, no rales or wheezing Abdomen: soft, NT, ND Extremities: no edema Laboratory Results - last 24 hr 08/15/17 08/17/17 08/17/17 15:00 06:00 06:00 WBC 6.0 RBC 4.14 Hgb 12.1 Hct 35.6 MCV 86.1 MCH 29.1 MCHC 33.8 RDW 14.6 Plt Count 268 MPV 8.3 Absolute Neuts (auto) 3.9 Neutrophils % 65.2 Lymphocytes % 15.9 Monocytes % 13.1 H Eosinophils % 5.4 H Basophils % 0.4 Nucleated RBC % 0 Sodium 139 Potassium 3.6 Chloride 107 Carbon Dioxide 26 Anion Gap 6 L BUN 5 L D Creatinine 0.6 L D Random Glucose 92 Calcium 8.1 L Tumor Marker AFP 1.1 Carcinoembryonic Ag 14.4 H CA 125 Antigen 15.1 Active Medications Generic Name Dose Route Start Last Admin Trade Name Freq PRN Reason Stop Dose Admin Bisacodyl 20 mg 08/17/17 12:00 Dulcolax - PO 08/17/17 12:01 ONCE ONE Carvedilol 6.25 mg 08/15/17 22:00 08/16/17 21:30 Coreg - PO 6.25 mg BID BRIAN Administration Sodium Chloride 1,000 mls @ 75 mls/hr 08/16/17 09:16 08/17/17 00:44 Normal Saline - IV 75 mls/hr ASDIR BRIAN Administration Losartan Potassium 100 mg 08/16/17 10:00 08/16/17 09:35 Cozaar - PO 100 mg DAILY BRIAN Administration Nifedipine 30 mg 08/16/17 10:00 08/16/17 09:35 Procardia Xl - PO 30 mg DAILY BRIAN Administration Polyethylene Glycol/Electrolytes 4,000 ml 08/17/17 17:00 Golytely Solution - PO 08/17/17 17:01 ONCE ONE Microbiology 08/14/17 10:20 Stool Salmonella/Shigella Culture - Final NO GROWTH OF SALMONELLA OR SHIGELLA SPECIES OBTAINED 08/14/17 10:20 Stool Campylobacter Culture - Final NO GROWTH OF CAMPYLOBACTER SPECIES OBTAINED 08/14/17 10:20 Stool Yersinia Culture - Final NO GROWTH OF YERSINIA SPECIES OBTAINED 08/14/17 10:20 Stool Vibrio Culture - Final NO GROWTH OF VIBRIO SPECIES OBTAINED 08/14/17 10:20 Stool Escherichia coli 0157 Culture - Final NO GROWTH OF E COLI 0157 OBTAINED 08/14/17 10:00 Blood - Peripheral Venous Blood Culture - Preliminary NO GROWTH OBTAINED AFTER 48 HOURS, INCUBATION TO CONTINUE FOR 3 DAYS. 08/14/17 10:00 Blood - Peripheral Venous Blood Culture - Preliminary NO GROWTH OBTAINED AFTER 48 HOURS, INCUBATION TO CONTINUE FOR 3 DAYS. 08/14/17 15:20 Urine For Antigen Detection Legionella Antigen - Final 08/14/17 15:20 Urine For Antigen Detection Streptococcus pneumoniae Antigen (M - Final 08/14/17 10:00 Urine - Urine - Catheterized Urine Culture - Final NO GROWTH OBTAINED 08/14/17 15:40 Nasopharyngeal Swab Influenza Types A,B Antigen - Preliminary 08/14/17 15:40 Nasopharyngeal Swab - Preliminary ASSESSMENT/PLAN: 61 yom with pMHx of Colon Ca s/p sigmoid resection, SBO , HTN, admitted with syncope x 2, hypotension and nausea/vomitting/diarrhea. -Syncope, suspect vasovagal compounded by severe hypovolumia -Nausea, vomiting/diarrhea, Likely Acute gastroenteritis -CLARITA, from above, resolved -Lung masses, metastatic disease from Colon Ca vs primary -Adrenal masses, likely metastatic disease -HTN -h/o Colon ca s/p sigmoid resection/SBO Plan: Pulmonary input appreciated, CT guided biopsy on Friday. Oncology input noted. GI consult appreciated, plan for EGD/colonoscopy on friday. Bowel prep. s/p 2 days of levaquin/flagyl, stool studies neg, no Stool C difficile sent but symptoms resolved, limiting course, no concerns, d/c antibiotics. Recurrent diarrhea, but now on bowel prep, monitor for now. Gentle hydration, encourage po intake. 2D echo noted, CT chest noted. Continue coreg/nifedipine/ARB. DVTPPx on hold today pending biopsy tomorrow. Dispo pending clinical improvement and resolution of symptoms. Visit type - Emergency Visit Emergency Visit: No - New Patient This patient is new to me today: No - Critical Care Critical Care patient: No
[2017-08-17 08:34] LABS: CHLORIDE 107 mmol/L (98-107); POTASSIUM 3.6 mmol/L (3.5-5.1); SODIUM 139 mmol/L (136-145)
[2017-08-17 08:41] LABS: ANION GAP 6 (8-16); BLOOD UREA NITROGEN 5 mg/dL (7-18); CALCIUM 8.1 mg/dL (8.5-10.1); CO2 26 mmol/L (21-32); CREATININE 0.6 mg/dL (0.7-1.3); GLUCOSE,RANDOM 92 mg/dL (74-106)
[2017-08-17] MEDS: CARVEDILOL 6.25 MG TABLET (FP) PO SCH ×2 (09:10→22:33)
[2017-08-17] MEDS: LOSARTAN POTASSIUM 50 MG TABLET (FP) PO SCH (09:10)
[2017-08-17] MEDS: NIFEdipine E.R. 30 MG TABLET (FP) PO SCH (09:10)
[2017-08-17] MEDS ORDERED: BISACODYL 5 MG TABLET.DR (FP) PO ONE (12:00)
--- NOTE | 2017-08-17 13:03 | PN ---
Progress Note (short form) - Note Progress Note: Resting in NAD on RA. No CP or SOB. Intake & Output 08/14/17 08/15/17 08/16/17 08/17/17 23:59 23:59 23:59 23:59 Intake Total 75814 3270 2780 1000 Output Total 1820 1600 500 Balance 8840 1670 2780 500 Weight 180 lb 180 lb Last Vital Signs Temp Pulse Resp BP Pulse Ox 98.9 F 70 20 130/72 98 08/17/17 08:00 08/17/17 08:00 08/17/17 08:00 08/17/17 08:00 08/17/17 07:59 Active Medications Carvedilol (Coreg -) 6.25 mg PO BID [facility] Last Admin: 08/17/17 09:10 Dose: 6.25 mg Sodium Chloride (Normal Saline -) 1,000 mls @ 75 mls/hr IV ASDIR [facility] Last Admin: 08/17/17 09:11 Dose: 75 mls/hr Losartan Potassium (Cozaar -) 100 mg PO DAILY [facility] Last Admin: 08/17/17 09:10 Dose: 100 mg Nifedipine (Procardia Xl -) 30 mg PO DAILY [facility] Last Admin: 08/17/17 09:10 Dose: 30 mg Polyethylene Glycol/Electrolytes (Golytely Solution -) 4,000 ml PO ONCE ONE Stop: 08/17/17 17:01 Gen: NAD HEENT: NCAT Neck: Supple, (-) JVD Cardiac: RRR, S1S2 Pulm: Clear Abd: soft, nontender, + BS Ext: 2+ pulses, no edema Laboratory Results - last 24 hr 08/15/17 08/17/17 08/17/17 15:00 06:00 06:00 WBC 6.0 RBC 4.14 Hgb 12.1 Hct 35.6 MCV 86.1 MCH 29.1 MCHC 33.8 RDW 14.6 Plt Count 268 MPV 8.3 Absolute Neuts (auto) 3.9 Neutrophils % 65.2 Lymphocytes % 15.9 Monocytes % 13.1 H Eosinophils % 5.4 H Basophils % 0.4 Nucleated RBC % 0 Sodium 139 Potassium 3.6 Chloride 107 Carbon Dioxide 26 Anion Gap 6 L BUN 5 L D Creatinine 0.6 L D Random Glucose 92 Calcium 8.1 L Tumor Marker AFP 1.1 Carcinoembryonic Ag 14.4 H CA 125 Antigen 15.1 Problem List - Problems (1) Lung mass Code(s): R91.8 - OTHER NONSPECIFIC ABNORMAL FINDING OF LUNG FIELD (2) Syncope Code(s): R55 - SYNCOPE AND COLLAPSE (3) Colon cancer Code(s): C18.9 - MALIGNANT NEOPLASM OF COLON, UNSPECIFIED IMP LEFT LUNG MASSES LIKELY MALIGNANT ? COLON METS SYNCOPE LIKELY SECONDARY HYPOVOLEMIA/VASOVAGAL H/O COLON CA S/P SIGMOID RESECTION/SBO HTN PLAN SCHEDULED FOR CT GUIDED BX LEFT LUNG MASS ON FRIDAY O2 PRN MONITOR OFF ABX DR HERNÁNDEZ
[2017-08-17] MEDS ORDERED: PEG 3350/NA SULF BICARB CL/KCL 4000 ML SOLN.RECON PO ONE (17:00)
[2017-08-18 06:58] LABS: INR 1.22 (0.82-1.09); PROTHROMBIN TIME (PATIENT) 13.8 SEC (9.7-13.0)
[2017-08-18 07:12] LABS: CHLORIDE 106 mmol/L (98-107); POTASSIUM 3.8 mmol/L (3.5-5.1); SODIUM 141 mmol/L (136-145)
[2017-08-18 07:39] LABS: ANION GAP 10 (8-16); BLOOD UREA NITROGEN 5 mg/dL (7-18); CALCIUM 8.5 mg/dL (8.5-10.1); CO2 25 mmol/L (21-32); CREATININE 0.7 mg/dL (0.7-1.3); GLUCOSE,RANDOM 86 mg/dL (74-106)
[2017-08-18 07:45] LABS: BASO % 0.5 % (0-2.0); EOS % 5.2 % (0-4.5); HEMATOCRIT 38.2 % (35.4-49); HEMOGLOBIN 12.9 GM/dL (11.7-16.9); LYMPH % 16.7 % (8-40); MCH 29.1 pg (25.7-33.7); MCHC 33.7 g/dl (32.0-35.9); MEAN CELL VOLUME 86.3 fl (80-96); MEAN PLT VOLUME 8.6 fl (7.5-11.1); MONO % 13.1 % (3.8-10.2); NEUT % 64.5 % (42.8-82.8); PLATELET COUNT 308 K/MM3 (134-434); RBC 4.42 M/mm3 (4.00-5.60); RDW 14.7 % (11.9-15.9); WHITE BLOOD COUNT 6.3 K/mm3 (4.0-10.0)
--- NOTE | 2017-08-18 08:22 | PN ---
Teaching Attending Note Name of Resident: Tyler Wharton ATTENDING PHYSICIAN STATEMENT I saw and evaluated the patient. I reviewed the resident's note and discussed the case with the resident. I agree with the resident's findings and plan as documented with exceptions below. SUBJECTIVE: Patient seen and examined, bowel prep overnight with multiple loose stools. No nausea, vomiting, fevers, chills or respiratory symptoms. OBJECTIVE: Vital Signs Period Temp Pulse Resp BP Sys/Wyatt Pulse Ox Last 24 Hr 98.4 F-99.1 F 69-72 18-20 140-150/77-88 95 Intake & Output 08/15/17 08/16/17 08/17/17 08/18/17 23:59 23:59 23:59 23:59 Intake Total 3270 2780 6340 900 Output Total 1600 800 Balance 1670 2780 5540 900 Weight 180 lb General: lying in bed in no acute distress Chest: CTAB, no rales or wheezing Abdomen:soft, NT, ND Extremities: no edema Home Medications Medication Instructions Recorded Carvedilol 6.25 mg PO BID 07/02/17 Losartan Potassium 100 mg PO DAILY 07/02/17 Nifedipine [Procardia Xl] 30 mg PO DAILY 08/14/17 Active Medications Carvedilol (Coreg -) 6.25 mg PO BID [facility] Last Admin: 08/17/17 22:33 Dose: 6.25 mg Sodium Chloride (Normal Saline -) 1,000 mls @ 75 mls/hr IV ASDIR [facility] Last Admin: 08/17/17 09:11 Dose: 75 mls/hr Losartan Potassium (Cozaar -) 100 mg PO DAILY [facility] Last Admin: 08/17/17 09:10 Dose: 100 mg Nifedipine (Procardia Xl -) 30 mg PO DAILY [facility] Last Admin: 08/17/17 09:10 Dose: 30 mg Laboratory Results - last 24 hr 08/17/17 08/18/17 08/18/17 06:00 05:30 05:30 WBC 6.3 RBC 4.42 Hgb 12.9 Hct 38.2 MCV 86.3 MCH 29.1 MCHC 33.7 RDW 14.7 Plt Count 308 MPV 8.6 Absolute Neuts (auto) 4.0 Neutrophils % 64.5 Lymphocytes % 16.7 Monocytes % 13.1 H Eosinophils % 5.2 H Basophils % 0.5 Nucleated RBC % 0 PT with INR 13.80 H INR 1.22 H PTT (Actin FS) 41.0 H Sodium 139 Potassium 3.6 Chloride 107 Carbon Dioxide 26 Anion Gap 6 L BUN 5 L D Creatinine 0.6 L D Random Glucose 92 Calcium 8.1 L 08/18/17 05:30 WBC RBC Hgb Hct MCV MCH MCHC RDW Plt Count MPV Absolute Neuts (auto) Neutrophils % Lymphocytes % Monocytes % Eosinophils % Basophils % Nucleated RBC % PT with INR INR PTT (Actin FS) Sodium 141 Potassium 3.8 Chloride 106 Carbon Dioxide 25 Anion Gap 10 BUN 5 L Creatinine 0.7 Random Glucose 86 Calcium 8.5 Microbiology 08/14/17 10:00 Blood - Peripheral Venous Blood Culture - Preliminary NO GROWTH OBTAINED AFTER 72 HOURS, INCUBATION TO CONTINUE FOR 2 DAYS. 08/14/17 10:00 Blood - Peripheral Venous Blood Culture - Preliminary NO GROWTH OBTAINED AFTER 72 HOURS, INCUBATION TO CONTINUE FOR 2 DAYS. 08/14/17 10:20 Stool Salmonella/Shigella Culture - Final NO GROWTH OF SALMONELLA OR SHIGELLA SPECIES OBTAINED 08/14/17 10:20 Stool Campylobacter Culture - Final NO GROWTH OF CAMPYLOBACTER SPECIES OBTAINED 08/14/17 10:20 Stool Yersinia Culture - Final NO GROWTH OF YERSINIA SPECIES OBTAINED 08/14/17 10:20 Stool Vibrio Culture - Final NO GROWTH OF VIBRIO SPECIES OBTAINED 08/14/17 10:20 Stool Escherichia coli 0157 Culture - Final NO GROWTH OF E COLI 0157 OBTAINED 08/14/17 15:20 Urine For Antigen Detection Legionella Antigen - Final 08/14/17 15:20 Urine For Antigen Detection Streptococcus pneumoniae Antigen (M - Final 08/14/17 10:00 Urine - Urine - Catheterized Urine Culture - Final NO GROWTH OBTAINED 08/14/17 15:40 Nasopharyngeal Swab Influenza Types A,B Antigen - Preliminary 08/14/17 15:40 Nasopharyngeal Swab - Preliminary ASSESSMENT AND PLAN: 61 yom with pMHx of Colon Ca s/p sigmoid resection, SBO , HTN, admitted with syncope x 2, hypotension and nausea/vomitting/diarrhea. -Syncope, suspect vasovagal compounded by severe hypovolumia -Nausea, vomiting/diarrhea, Likely Acute gastroenteritis -CLARITA, from above, resolved -Lung masses, metastatic disease from Colon Ca vs primary -Adrenal masses, likely metastatic disease -HTN -h/o Colon ca s/p sigmoid resection/SBO Plan: EGD/colonoscopy results noted. Pulmonary input appreciated, for CT guided biopsy lung mass. Oncology input noted. s/p 2 days of levaquin/flagyl, stool studies neg, no Stool C difficile sent as symptoms had resolved, limiting course, no concerns, Off abx, monitor clinically Gentle hydration, encourage po intake. 2D echo noted, CT chest noted. Continue coreg/nifedipine/ARB. DVTPPx on hold today pending biopsy Dispo d/c planning in 24 hours post biopsy with outpatient oncology/pulmonary follow up if no concerns.
[2017-08-18] MEDS: LOSARTAN POTASSIUM 50 MG TABLET (FP) PO SCH (09:28)
[2017-08-18] MEDS: NIFEdipine E.R. 30 MG TABLET (FP) PO SCH (09:29)
[2017-08-18] MEDS: SODIUM CHLORIDE 1,000 ML IV SCH ×2 (09:29→21:03)
[2017-08-18] MEDS: CARVEDILOL 6.25 MG TABLET (FP) PO SCH ×2 (09:29→21:03)
--- NOTE | 2017-08-18 10:46 | PN ---
Progress Note, Physician History of Present Illness: PULMONARY ALERT,NAD ,-SOB,-CP. PT FOR COLONOSCOPY TODAY - Current Medication List Current Medications: Active Medications Carvedilol (Coreg -) 6.25 mg PO BID [facility] Last Admin: 08/18/17 09:29 Dose: 6.25 mg Sodium Chloride (Normal Saline -) 1,000 mls @ 75 mls/hr IV ASDIR [facility] Last Admin: 08/18/17 09:29 Dose: 75 mls/hr Losartan Potassium (Cozaar -) 100 mg PO DAILY [facility] Last Admin: 08/18/17 09:28 Dose: 100 mg Nifedipine (Procardia Xl -) 30 mg PO DAILY [facility] Last Admin: 08/18/17 09:29 Dose: 30 mg - Objective Vital Signs: Vital Signs Temperature 98.7 F 08/18/17 06:03 Pulse Rate 69 08/18/17 06:03 Respiratory Rate 20 08/18/17 06:03 Blood Pressure 145/77 08/18/17 06:03 O2 Sat by Pulse Oximetry (%) 95 08/17/17 21:00 Constitutional: Yes: Well Nourished, Calm Eyes: Yes: WNL HENT: Yes: WNL Neck: Yes: WNL Cardiovascular: Yes: Regular Rate and Rhythm, S1, S2 Respiratory: Yes: CTA Bilaterally Gastrointestinal: Yes: Normal Bowel Sounds, Soft Extremities: Yes: WNL Edema: No Labs: CBC, BMP 08/18/17 05:30 08/18/17 05:30 INR, PTT INR 1.22 (0.82-1.09) H 08/18/17 05:30 Problem List - Problems (1) Lung mass Code(s): R91.8 - OTHER NONSPECIFIC ABNORMAL FINDING OF LUNG FIELD (2) Syncope Code(s): R55 - SYNCOPE AND COLLAPSE (3) Colon cancer Code(s): C18.9 - MALIGNANT NEOPLASM OF COLON, UNSPECIFIED Assessment/Plan IMP LEFT LUNG MASSES LIKELY MALIGNANT ? COLON METS SYNCOPE LIKELY SECONDARY HYPOVOLEMIA/VASOVAGAL H/O COLON CA S/P SIGMOID RESECTION/SBO HTN PLAN IVF CT GUIDED BX LEFT LUNG MASS TODAY MONITOR LYTES O2 PRN COLONOSCOPY TODAY DR CLOUD Problem List - Problems (1) Lung mass Code(s): R91.8 - OTHER NONSPECIFIC ABNORMAL FINDING OF LUNG FIELD (2) Syncope Code(s): R55 - SYNCOPE AND COLLAPSE (3) Colon cancer Code(s): C18.9 - MALIGNANT NEOPLASM OF COLON, UNSPECIFIED
[2017-08-18] MEDS ORDERED: PROPOFOL 20 ML ONE ×2 (13:14)
--- NOTE | 2017-08-18 14:18 | PROC ---
Endoscopy Procedure Endoscopy procedure completed. Please see scanned procedure report. mild esophagitis, otherwise normal EGD Normal appearing anastomotic at 20 cm, otherwise normal colonoscopy to TI
--- NOTE | 2017-08-18 18:49 | PN ---
Physical Exam: SUBJECTIVE: Patient seen and examined at bedside. Pt had colonoscopy and endoscopy today. For Bx tomorrow. Pt feels well today. No complaints. OBJECTIVE: Vital Signs Period Temp Pulse Resp BP Sys/Wyatt Pulse Ox Last 24 Hr 97.9 F-99.1 F 66-73 16-20 124-146/63-83 95-99 Gen: NAD HEENT: NCAT, PERRLA, EOMI Neck: Supple, no jvd, no bruits Cardiac: RRR, normal s1s2, no m/r/g Pulm: cta bl Abd: soft, nontender, + BS, Hwang neg Ext: 2+ pulses, no edema Laboratory Results - last 24 hr 08/18/17 08/18/17 08/18/17 05:30 05:30 05:30 WBC 6.3 RBC 4.42 Hgb 12.9 Hct 38.2 MCV 86.3 MCH 29.1 MCHC 33.7 RDW 14.7 Plt Count 308 MPV 8.6 Absolute Neuts (auto) 4.0 Neutrophils % 64.5 Lymphocytes % 16.7 Monocytes % 13.1 H Eosinophils % 5.2 H Basophils % 0.5 Nucleated RBC % 0 PT with INR 13.80 H INR 1.22 H PTT (Actin FS) 41.0 H Sodium 141 Potassium 3.8 Chloride 106 Carbon Dioxide 25 Anion Gap 10 BUN 5 L Creatinine 0.7 Random Glucose 86 Calcium 8.5 Active Medications Generic Name Dose Route Start Last Admin Trade Name Freq PRN Reason Stop Dose Admin Carvedilol 6.25 mg 08/15/17 22:00 08/18/17 09:29 Coreg - PO 6.25 mg BID BRIAN Administration Sodium Chloride 1,000 mls @ 75 mls/hr 08/16/17 09:16 08/18/17 09:29 Normal Saline - IV 75 mls/hr ASDIR BRIAN Administration Losartan Potassium 100 mg 08/16/17 10:00 08/18/17 09:28 Cozaar - PO 100 mg DAILY BRIAN Administration Nifedipine 30 mg 08/16/17 10:00 08/18/17 09:29 Procardia Xl - PO 30 mg DAILY BRIAN Administration ASSESSMENT/PLAN: Pt is a 61 y/o M with PMH HTN, nephrolithiasis who presented with 4 days of abd pain associated with 1 episode NBNB vomit, and numerous episodes of watery nonbloody diarrhea and subjective fevers. Pt was admitted for possible CAP and diarrheal illness. #Lung mass -initially suspected CAP -No resp symptoms, but routine CXR showed L consolidation -CURB-65: 2 -Chest CT revealed 3 L lung mass, b/l adrenal masses and LN involvement suggestive of metastatic disease -Urine for Legionella/Strep negative -Got levaquin in ED -Pulm consulted -For IR biopsy #Diarrhea -likely acute gastroenteritis -abd pain resolved -monitor -stool studies pending -Levaquin -Flagyl -GI consulted -EGD/Colonoscopy today showed esophagitis and normal colonic anastomosis #Syncope -2 syncople episodes -? head trauma -CT head -likely 2/2 dehydration/volume depletion -got 4L NS in ED -NS -Echo #Dehydration -2/2 decreased PO and diarrhea -4L nS in ed -NS #FEN -NS -lytes wnl -Reg diet. Clears 08/17/2017. NPO after midnight Friday night #PPx -Hep Sub Q #Dispo -admit to tele Note Pt sees Dr. Perry Ky [phone] Tyler Wharton MD PGY-1 IM Visit type - Emergency Visit Emergency Visit: No - New Patient This patient is new to me today: No - Critical Care Critical Care patient: No - Discharge Referral Referred to [facility] Med P.C.: No
[2017-08-18 21:21] LABS: INR 1.23 (0.82-1.09); PROTHROMBIN TIME (PATIENT) 13.9 SEC (9.7-13.0)
[2017-08-18 21:24] LABS: ACTIVATED PTT 39.1 SECONDS (26.9-34.4)
[2017-08-19] MEDS: LOSARTAN POTASSIUM 50 MG TABLET (FP) PO SCH (09:03)
[2017-08-19] MEDS: CARVEDILOL 6.25 MG TABLET (FP) PO SCH (09:04)
[2017-08-19] MEDS: NIFEdipine E.R. 30 MG TABLET (FP) PO SCH (09:04)
[2017-08-19 10:03] VITALS: TEMP 98
[2017-08-19 10:45] VITALS: BP 161/96
[2017-08-19 10:54] VITALS: PULSE 69
--- NOTE | 2017-08-19 11:25 | PN ---
Progress Note, Physician History of Present Illness: pulmonary alert,nad s/p ct guided bx left lung mass tolerated procedure well. egd and colonoscopy normal - Current Medication List Current Medications: Active Medications Carvedilol (Coreg -) 6.25 mg PO BID [facility] Last Admin: 08/19/17 09:04 Dose: 6.25 mg Sodium Chloride (Normal Saline -) 1,000 mls @ 75 mls/hr IV ASDIR [facility] Last Admin: 08/18/17 21:03 Dose: 75 mls/hr Losartan Potassium (Cozaar -) 100 mg PO DAILY [facility] Last Admin: 08/19/17 09:03 Dose: 100 mg Nifedipine (Procardia Xl -) 30 mg PO DAILY [facility] Last Admin: 08/19/17 09:04 Dose: 30 mg - Objective Vital Signs: Vital Signs Temperature 98 F 08/19/17 10:00 Pulse Rate 69 08/19/17 10:51 Respiratory Rate 16 08/19/17 10:51 Blood Pressure 161/96 08/19/17 10:51 O2 Sat by Pulse Oximetry (%) 100 08/19/17 10:51 Constitutional: Yes: Well Nourished, Calm Eyes: Yes: WNL HENT: Yes: WNL Neck: Yes: WNL Cardiovascular: Yes: Regular Rate and Rhythm, S1, S2 Respiratory: Yes: CTA Bilaterally Gastrointestinal: Yes: Normal Bowel Sounds, Soft Extremities: Yes: WNL Edema: No Labs: CBC, BMP 08/18/17 05:30 08/18/17 05:30 INR, PTT INR 1.23 (0.82-1.09) H 08/18/17 20:30 Problem List - Problems (1) Lung mass Code(s): R91.8 - OTHER NONSPECIFIC ABNORMAL FINDING OF LUNG FIELD (2) Syncope Code(s): R55 - SYNCOPE AND COLLAPSE (3) Colon cancer Code(s): C18.9 - MALIGNANT NEOPLASM OF COLON, UNSPECIFIED Assessment/Plan IMP LEFT LUNG MASSES LIKELY MALIGNANT SYNCOPE LIKELY SECONDARY HYPOVOLEMIA/VASOVAGAL H/O COLON CA S/P SIGMOID RESECTION/SBO HTN PLAN IVF CHECK PATH MONITOR LYTES O2 PRN DR CLOUD Problem List - Problems (1) Lung mass Code(s): R91.8 - OTHER NONSPECIFIC ABNORMAL FINDING OF LUNG FIELD (2) Syncope Code(s): R55 - SYNCOPE AND COLLAPSE (3) Colon cancer Code(s): C18.9 - MALIGNANT NEOPLASM OF COLON, UNSPECIFIED
--- NOTE | 2017-08-19 13:06 | PN ---
Teaching Attending Note Name of Resident: Tyler Wharton ATTENDING PHYSICIAN STATEMENT I saw and evaluated the patient. I reviewed the resident's note and discussed the case with the resident. I agree with the resident's findings and plan as documented. SUBJECTIVE:asymptomatic. denies CP, SOB< fever, chills, N/V/C/D, hemoptysis or difficulty breathing OBJECTIVE: Last Vital Signs Temp Pulse Resp BP Pulse Ox 98 F 69 16 161/96 100 08/19/17 10:00 08/19/17 10:51 08/19/17 10:51 08/19/17 10:51 08/19/17 10:51 General NAD Lungs decreased breath sounds L base. no crackles or wheezing. bandage on L mid thorax c/d/i ASSESSMENT AND PLAN: 61 yo M with pMHx of Colon Ca s/p sigmoid resection, SBO , HTN, admitted with syncope x 2, hypotension and nausea/vomitting/diarrhea. 1. Syncope, suspect vasovagal compounded by severe hypovolumia- no repeat episodes. no events noted on tele monitor 2. Nausea, vomiting/diarrhea, Likely Acute gastroenteritis- now resolved. tolerating regular diet 3. CLARITA- due to hypovolemia. now resolved. 4. Lung masses, metastatic disease from Colon Ca vs primary- s/p lung bx 08/19. post-procedure CXR no PTX. saturating 100% on RA. can f/u with oncologist as outpatient for bx results. EGD on 08/18 was negative for any masses. will need oncology outpatient for further treatment and recommendations 5. Adrenal masses, likely metastatic disease 6. HTN- improved. d/c on losartan 100mg in addition to home meds 7. h/o Colon ca s/p sigmoid resection/SBO 8. d/c home with follow up. family sitting at bedside. explained new medications and follow ups. verbalized understanding and agreement with plan
--- NOTE | 2017-08-19 16:41 | PATH ---
Surgical Pathology Report Patient Name: ALEX HENDRICKSON [facility]. Rec. #: [id number] /Age/Gender: 1955 (Age: 61) / M Account: [id number] Location: 4 W TELEMETRY U Taken: 08/18/2017 Received: 08/18/2017 Reported: 08/19/2017 Physicians: Jesse Torres M.D. Specimen(s) Received A: BX ANTRUM AND BODY B: BX GE JUNCTION Clinical History Abnormal CAT scan Postoperative diagnosis: Esophagitis, normal colonoscopy Final Diagnosis A. STOMACH, ANTRUM AND BODY, BIOPSY: GASTRIC ANTRAL AND BODY MUCOSA WITH MILD CHRONIC GASTRITIS AND INTESTINAL METAPLASIA. NO DYSPLASIA IDENTIFIED. IMMUNOHISTOCHEMICAL STAIN FOR H. PYLORI IS NEGATIVE. B. 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 NO DYSPLASIA IDENTIFIED. Electronically Signed Catarina Potter M.D. Gross Description A. Received in formalin, labeled "antrum and body" are 2 gibson, irregular portions of soft tissue measuring 0.3 and 0.4 cm. in greatest dimension. The specimens are submitted in toto in one cassette. B. Received in formalin, labeled "GE junction" are 2 gibson, irregular portions of soft tissue measuring 0.3 cm. in greatest dimension. The specimens are submitted in toto in one cassette. KARLOS/08/18/2017 karyn/08/18/2017
--- NOTE | 2017-08-19 17:28 | DS ---
Physical Exam: SUBJECTIVE: Patient seen and examined at bedside. Pt had colonoscopy and endoscopy yest. Had lung Bx today. Pt feels well. No complaints. OBJECTIVE: Vital Signs Period Temp Pulse Resp BP Sys/Wyatt Pulse Ox Last 24 Hr 98 F-99.3 F 64-78 15-18 134-161/76-96 94-100 PHYSICAL EXAM Gen: NAD HEENT: NCAT, PERRLA, EOMI Neck: Supple, no jvd, no bruits Cardiac: RRR, normal s1s2, no m/r/g Pulm: cta bl Abd: soft, nontender, + BS, Hwang neg Ext: 2+ pulses, no edema LABS Laboratory Results - last 24 hr 08/18/17 20:30 PT with INR 13.90 H INR 1.23 H PTT (Actin FS) 39.1 H HOSPITAL COURSE: Date of Admission:08/14/17 Date of Discharge: 08/19/17 Pt is a 61 y/o M with PMH HTN, nephrolithiasis who presented with 4 days of abd pain associated with 1 episode NBNB vomit, and numerous episodes of watery nonbloody diarrhea and subjective fevers. Pt was admitted for possible CAP and diarrheal illness. Pt's lung mass was initially seen on CXR, which showed L consolidation. Urine for Legionella/Strep negative. Pt got levaquin in ED. CAP was considered, but due to lack of pulm symptoms, CT chest was ordered to obtain a clear view. Chest CT revealed 3 L lung mass, b/l adrenal masses and LN involvement suggestive of metastatic disease. Pulm, Heme onc consults were placed, and pt had a lung Bx. Pt initially presented with diarrhea. It was felt to likely be acute gastroenteritis. Once CTAP revealed multiple tumors and colon thickening, GI consult was place. Pt had EGD/Colonoscopy, which showed esophagitis and normal colonic anastomosis. Pt's abd pain resolved. He was given Levaquin and Flagyl. Stool studies were ultimately unremarkable. Pt initially presented with Syncope. This was felt to be 2/2 dehydration 2/2 several days of diarrheal illness. 1 episode was witnessed in ED. CT head was unremarkable. Pt's volume status was repleted. Echo was done and showed moderate asymmetric LVH and L atrial dilation. Note Pt sees Dr. Perry Ky [phone] Minutes to complete discharge: 30 Discharge Summary Reason For Visit: SEPSIS,PNEUMONIA Condition: Stable - Instructions Diet, Activity, Other Instructions: You were brought to the hospital because of nausea, vomiting, diarrhea, and fainting due to dehydration. While you were here, a CT scan of the chest showed 3 lung tumors. It is extremely important that you follow up with with your primary care doctor , the GI doctor, the lung doctor and the Oncologist. You were seen in the hospital by Dr. Jesse Torres, FRANCI and by Dr. Alice Aly from Heme/ Oncology as well as Dr. Larry Vaca from pulmonology. You should make appointments with all 3 doctors once you leave the hospital. You will need lots of medical testing and treatment in the near future. Avoid taking NSAIDS (motrin. ibuprofen, naproxen or aleive) or aspirin for the next 2 weeks You are being sent home with a new medication. Take Cozaar 100mg daily. If you develop more symptoms, especially cough with or without blood, fevers, chills, nausea, vomiting, diarrhea, return to the emergency department. Referrals: Larry Vaca MD [Staff Physician] - 1 Week Jesse Torres MD [Staff Physician] - 1 Week Alice Aly MD [Staff Physician] - 1 Week Disposition: HOME - Home Medications Comprehensive Discharge Medication List: Ambulatory Orders Carvedilol 6.25 mg PO BID 07/02/17 Losartan Potassium 100 mg PO DAILY 07/02/17 Nifedipine [Procardia Xl] 30 mg PO DAILY 08/14/17 Losartan Potassium [Cozaar -] 100 mg PO DAILY #30 tablet 08/19/17 This patient is new to me today: No Emergency Visit: No Critical Care patient: No - Discharge Referral Referred to [facility] Med P.C.: No
--- NOTE | 2017-08-21 16:53 | PATH ---
Surgical Pathology Report Patient Name: ALEX HENDRICKSON [facility]. Rec. #: [id number] /Age/Gender: 1955 (Age: 61) / M Account: [id number] Location: 4 W TELEMETRY U Taken: 08/19/2017 Received: 08/19/2017 Reported: 08/21/2017 Physicians: Rosie Kingston M.D. Smitha Mellacheruvu, M.D. Specimen(s) Received LEFT LUNG BIOPSY Clinical History History of colon cancer s/p resection, now with multiple lung and adrenal gland lesions r/o colon cancer versus lung primary, no liver lesions in CT Final Diagnosis LUNG, LEFT, CT-GUIDED BIOPSY: ADENOCARCINOMA, WELL TO MODERATELY DIFFERENTIATED. Comment: Scanty tumor material present. Immunohistochemical stains performed and interpreted at [facility] show the tumor is positive for CK20, while negative for CK7. Immunohistochemical stains performed at [facility], [place], [place] ([id number]) and interpreted at [facility] show the tumor is positive for SATB2 and CDX2. Histomorphology and immunophenotype is consistent colorectal origin. History of colon cancer is noted. Additional studies for mismatched repair proteins (MMR), PDL-1, and molecular studies are pending, and will be reported separately as an addendum. Findings discussed with Dr. Aly. Electronically Signed Catarina Potter M.D. Addendum Reported: 08/22/2017 Addendum Diagnosis Immunohistochemical stains for MisMatch Repair Protein Analysis performed at [facility] in [place], [place] ([id number]) and interpreted at [facility] show the following: RESULTS: HMLH-1 INTACT NUCLEAR EXPRESSION HMSH-2 INTACT NUCLEAR EXPRESSION HMSH-6 INTACT NUCLEAR EXPRESSION PMS2 INTACT NUCLEAR EXPRESSION INTERPRETATION: No loss of nuclear expression of MMR proteins: low probability of microsatellite instability-high (MSI-H). Catarina Potter M.D. Gross Description Received in formalin, labeled "left the lung biopsy" are multiple tiny portions of soft tissue measuring 0.3 cm. in greatest dimension. The specimen is submitted in toto in one cassette. KWS/08/19/2017 gilmar/08/19/2017
== END 2017-08-19 15:40 | disposition home or self-care (01) | DRG 181 ==
LOC: JER 09:41 → JERBED 13:34 → J4W 18:05
PROVIDERS: ADMIT Hospitalist; ATTEND Internal Medicine
PROC: 0DD68ZX Extraction of Stomach, Via Natural or Artificial Opening Endoscopic, Diagnostic (ICD-10-PCS; 2017-08-18)
PROC: 0DJD8ZZ Inspection of Lower Intestinal Tract, Via Natural or Artificial Opening Endoscopic (ICD-10-PCS; 2017-08-18)
PROC: 0BBL3ZX Excision of Left Lung, Percutaneous Approach, Diagnostic (ICD-10-PCS; principal; 2017-08-19)
DX: C78.02 Secondary malignant neoplasm of left lung (principal); E87.1 Hypo-osmolality and hyponatremia; N17.9 Acute kidney failure, unspecified; C18.9 Malignant neoplasm of colon, unspecified; R55 Syncope and collapse; E86.0 Dehydration; R91.8 Other nonspecific abnormal finding of lung field; I10 Essential (primary) hypertension; K52.9 Noninfective gastroenteritis and colitis, unspecified; K29.50 Unspecified chronic gastritis without bleeding; K20.9 Esophagitis, unspecified; E83.39 Other disorders of phosphorus metabolism; E83.42 Hypomagnesemia
CPT/HCPCS: 32405; 36415; 70450-TC; 71045-TC-FY; 71250-TC; 74177-TC; 77012-TC; 80048; 80053; 81003; 82105; 82378; 82550; 82553; 82803; 83605; 83735; 84100; 84484; 85025; 85610; 85730; 86304; 87040; 87045; 87046; 87086; 87804; 87899; 88305-TC; 88341-TC; 93005; 93010; 93306-TC; 99285-25; J0131; J1644; J7030

== ENCOUNTER 2020-02-21 14:17 | Inpatient (IN) | payer BC, OTHER ==
[2020-02-21 16:44] LABS: BASO % 0.2 % (0-2.0); EOS % 3.6 % (0-4.5); HEMATOCRIT 35.5 % (35.4-49); HEMOGLOBIN 11.5 GM/dL (11.7-16.9); MCH 27.6 pg (25.7-33.7); MCHC 32.4 g/dl (32.0-35.9); MEAN CELL VOLUME 85.2 fl (80-96); MEAN PLT VOLUME 7.1 fl (7.5-11.1); MONO % 10.1 % (3.8-10.2); NEUT % 82.1 % (42.8-82.8); PLATELET COUNT 254 K/MM3 (134-434); RBC 4.17 M/mm3 (4.00-5.60); RDW 18.3 % (11.9-15.9); WHITE BLOOD COUNT 14.6 K/mm3 (4.0-10.0)
[2020-02-21 16:58] LABS: CHLORIDE 106 mmol/L (98-107); POTASSIUM 4.9 mmol/L (3.5-5.1); SODIUM 141 mmol/L (136-145)
[2020-02-21 16:59] LABS: CALCIUM 8.6 mg/dL (8.5-10.1)
[2020-02-21 17:00] LABS: ALBUMIN 2.8 g/dl (3.4-5.0); ANION GAP 7 MMOL/L (8-16); BLOOD UREA NITROGEN 29.7 mg/dL (7-18); CO2 28 mmol/L (21-32); GLUCOSE,RANDOM 107 mg/dL (74-106); INR 1.12 (0.83-1.09); PROTHROMBIN TIME (PATIENT) 13.7 SEC (9.7-13.0)
[2020-02-21 17:03] LABS: CREATININE 1.6 mg/dL (0.55-1.3); SGOT/AST 25 U/L (15-37); SGPT/ALT 15 U/L (13-61)
[2020-02-21 17:04] LABS: BILIRUBIN,TOTAL 0.5 mg/dL (0.2-1); LDH 317 U/L (87-246)
[2020-02-21 17:05] LABS: TOT PROT 6.7 g/dl (6.4-8.2)
[2020-02-21 17:06] LABS: ALK PHOS 162 U/L (45-117)
[2020-02-21] MEDS ORDERED: ENOXAPARIN NA (PORCINE) 40 MG/0.4 ML DISP.SYRIN SQ ONE ×2 (17:24→18:05)
[2020-02-21] MEDS ORDERED: DEXAMETHASONE SOD PHOSPHATE 4 MG/1 ML VIAL IVPUSH ONE (17:24)
[2020-02-21] MEDS ORDERED: DEXAMETHASONE SOD PHOSPHATE 10 MG/1 ML VIAL ONE (18:05)
[2020-02-21] MEDS ORDERED: DEXTROSE 5%-NORMAL SALINE 1,000 ML IV SCH (20:15)
[2020-02-21] MEDS ORDERED: SODIUM CHLORIDE 1,000 ML IV SCH (20:30)
[2020-02-21] MEDS ORDERED: FAMOTIDINE 20 MG TABLET ONE (21:07)
[2020-02-21] MEDS ORDERED: ASCORBIC ACID 500 MG TABLET (FP) ONE (21:07)
[2020-02-21] MEDS: ASCORBIC ACID 500 MG TABLET (FP) PO SCH (21:23)
[2020-02-21] MEDS: FAMOTIDINE 20 MG TABLET PO SCH (21:23)
[2020-02-21] MEDS ORDERED: SODIUM CHLORIDE 1,000 ML IV STA (21:37)
[2020-02-21] MEDS ORDERED: CEFTRIAXONE 1 GM in DEXTROSE 5%-WATER - 50 ML IVPB ONE (21:48)
[2020-02-21] MEDS ORDERED: AZITHROMYCIN IVPB 500 MG/250 ML BAG IVPB ONE ×2 (21:48→22:15)
[2020-02-21] MEDS ORDERED: CEFTRIAXONE 1 GM/50 ML BAG ONE (22:15)
[2020-02-21 22:38] LABS: PH,URINE 5.5 (5.0-8.0); URINE APPEARANCE CLEAR; URINE BILIRUBIN NEGATIVE (NEGATIVE); URINE COLOR YELLOW; URINE GLUCOSE (UA) NEGATIVE (NEGATIVE); URINE KETONE NEGATIVE (NEGATIVE); URINE LEUK ESTERASE NEGATIVE (NEGATIVE); URINE NITRITE NEGATIVE (NEGATIVE); URINE PROTEIN NEGATIVE (NEGATIVE); URINE UROBILINOGEN 0.2 mg/dL (0.2-1.0)
[2020-02-22 00:49] LABS: INR 1.21 (0.83-1.09); PROTHROMBIN TIME (PATIENT) 14.6 SEC (9.7-13.0)
[2020-02-22 00:52] LABS: ACTIVATED PTT 40.9 SECONDS (25.2-36.5)
[2020-02-22] MEDS ORDERED: MELATONIN 5 MG TABLETS PO STA (01:01)
[2020-02-22 01:27] LABS: EPI CELLS 11.8 /uL (0-25.1); URINE RBC 7.9 /uL (0-23.9); URINE WBC 6.1 /uL (0-25.8)
[2020-02-22 01:28] LABS: HYALINE CASTS 4.23 /uL (0-3.1); URINE BACTERIA 33.4 /uL (0-1359)
[2020-02-22] MEDS ORDERED: MELATONIN 5 MG TABLETS ONE (01:30)
[2020-02-22 05:56] LABS: BASO % 0.2 % (0-2.0); HEMATOCRIT 32.5 % (35.4-49); HEMOGLOBIN 10.5 GM/dL (11.7-16.9); LYMPH % 5.6 % (8-40); MCH 27.6 pg (25.7-33.7); MCHC 32.3 g/dl (32.0-35.9); MEAN CELL VOLUME 85.4 fl (80-96); MEAN PLT VOLUME 6.9 fl (7.5-11.1); MONO % 1.1 % (3.8-10.2); NEUT % 93.1 % (42.8-82.8); PLATELET COUNT 198 K/MM3 (134-434); RDW 18.4 % (11.9-15.9); WHITE BLOOD COUNT 5.8 K/mm3 (4.0-10.0)
[2020-02-22] MEDS ORDERED: HEPARIN NA (PORCINE) 5,000 UNITS/ML 1ML VIAL SQ SCH (06:00)
[2020-02-22] MEDS ORDERED: HEPARIN NA (PORCINE) 5,000 UNITS/ML 1ML VIAL ONE (06:11)
[2020-02-22 06:20] LABS: ALBUMIN 2.6 g/dl (3.4-5.0); BLOOD UREA NITROGEN 30.4 mg/dL (7-18); CALCIUM 8.4 mg/dL (8.5-10.1); MAGNESIUM 2.1 mg/dL (1.8-2.4)
[2020-02-22 06:23] LABS: CREATININE 1.3 mg/dL (0.55-1.3)
[2020-02-22 06:24] LABS: PHOSPHOROUS 4.2 mg/dL (2.5-4.9); TOT PROT 6.4 g/dl (6.4-8.2)
[2020-02-22 06:25] LABS: BILIRUBIN,TOTAL 0.3 mg/dL (0.2-1)
[2020-02-22] MEDS ORDERED: ASCORBIC ACID 500 MG TABLET (FP) ONE ×2 (08:34→21:16)
[2020-02-22] MEDS ORDERED: DEXAMETHASONE 4 MG TABLET (FP) ONE (08:34)
[2020-02-22] MEDS ORDERED: FAMOTIDINE 20 MG TABLET ONE ×2 (08:35→21:17)
[2020-02-22] MEDS ORDERED: ZINC SULFATE 220 MG CAPSULE (FP) ONE (08:35)
[2020-02-22] MEDS: ZINC SULFATE 220 MG CAPSULE (FP) PO SCH (09:05)
[2020-02-22] MEDS: DEXAMETHASONE 4 MG TABLET (FP) PO SCH (09:05)
[2020-02-22] MEDS: FAMOTIDINE 20 MG TABLET PO SCH ×2 (09:05→21:42)
[2020-02-22] MEDS: SODIUM CHLORIDE 1,000 ML IV SCH (09:05)
[2020-02-22] MEDS: ASCORBIC ACID 500 MG TABLET (FP) PO SCH ×2 (09:05→21:42)
[2020-02-22] MEDS ORDERED: DEXAMETHASONE SOD PHOSPHATE 10 MG/1 ML VIAL IVPUSH SCH (10:00)
[2020-02-22] MEDS: CHOLECALCIFEROL (VIT D3) 1,000 UNIT (25 MCG) TABLET PO SCH (10:45)
[2020-02-22 11:34] LABS: ANISOCYTOSIS 0; MACROCYTOSIS 0; PLATELET ESTIMATE NORMAL
[2020-02-22] MEDS ORDERED: DEXAMETHASONE SOD PHOSPHATE 4 MG/1 ML VIAL IVPUSH ONE (12:31)
[2020-02-22] MEDS ORDERED: ENOXAPARIN NA (PORCINE) 40 MG/0.4 ML DISP.SYRIN SQ ONE (13:45)
[2020-02-22] MEDS: ENOXAPARIN NA (PORCINE) 40 MG/0.4 ML DISP.SYRIN SQ SCH (13:50)
[2020-02-22] MEDS ORDERED: CEFTRIAXONE 1 GM/50 ML BAG ONE (15:33)
[2020-02-22] MEDS ORDERED: AZITHROMYCIN IVPB 500 MG/250 ML BAG IVPB ONE ×2 (15:42→16:00)
[2020-02-22] MEDS ORDERED: CEFTRIAXONE 1 GM in DEXTROSE 5%-WATER - 50 ML IVPB ONE (16:00)
[2020-02-22] MEDS ORDERED: MELATONIN 5 MG TABLETS PO PRN (17:54)
[2020-02-23 00:40] VITALS: BMI 27.1
[2020-02-23 07:46] LABS: HEMOGLOBIN 9.8 GM/dL (11.7-16.9); LYMPH % 3.4 % (8-40); MCH 27.8 pg (25.7-33.7); MCHC 32.6 g/dl (32.0-35.9); MEAN CELL VOLUME 85.3 fl (80-96); MEAN PLT VOLUME 7.2 fl (7.5-11.1); NEUT % 92.6 % (42.8-82.8); PLATELET COUNT 188 K/MM3 (134-434); RBC 3.51 M/mm3 (4.00-5.60); RDW 17.9 % (11.9-15.9); WHITE BLOOD COUNT 8.7 K/mm3 (4.0-10.0)
[2020-02-23 08:07] LABS: INR 1.08 (0.83-1.09); PROTHROMBIN TIME (PATIENT) 13.2 SEC (9.7-13.0)
[2020-02-23 08:08] LABS: ACTIVATED PTT 32.6 SECONDS (25.2-36.5)
[2020-02-23 08:11] LABS: POTASSIUM 5.3 mmol/L (3.5-5.1)
[2020-02-23 08:28] LABS: ALBUMIN 2.5 g/dl (3.4-5.0); BLOOD UREA NITROGEN 35.7 mg/dL (7-18); MAGNESIUM 2.1 mg/dL (1.8-2.4)
[2020-02-23 08:31] LABS: CREATININE 1.3 mg/dL (0.55-1.3); PHOSPHOROUS 3.9 mg/dL (2.5-4.9)
[2020-02-23] MEDS ORDERED: DEXTROSE 5%-WATER - 50 ML IVPB ONE (08:31)
[2020-02-23] MEDS ORDERED: cefTRIAXone SODIUM 1 GM VIAL ONE (08:31)
[2020-02-23 08:32] LABS: CALCIUM 8.3 mg/dL (8.5-10.1)
[2020-02-23 08:33] LABS: BILIRUBIN,TOTAL 0.3 mg/dL (0.2-1)
[2020-02-23] MEDS: ZINC SULFATE 220 MG CAPSULE (FP) PO SCH (09:19)
[2020-02-23] MEDS: FAMOTIDINE 20 MG TABLET PO SCH ×2 (09:19→21:18)
[2020-02-23] MEDS: ENOXAPARIN NA (PORCINE) 40 MG/0.4 ML DISP.SYRIN SQ SCH (09:21)
[2020-02-23] MEDS: DEXAMETHASONE 4 MG TABLET (FP) PO SCH (09:21)
[2020-02-23] MEDS: ASCORBIC ACID 500 MG TABLET (FP) PO SCH ×2 (09:21→21:18)
[2020-02-23] MEDS: CHOLECALCIFEROL (VIT D3) 1,000 UNIT (25 MCG) TABLET PO SCH (09:22)
[2020-02-23] MEDS: CEFTRIAXONE 1 GM in DEXTROSE 5%-WATER - 50 ML IVPB SCH (09:24)
[2020-02-23] MEDS: AZITHROMYCIN IVPB 500 MG/250 ML BAG IVPB SCH (10:15)
[2020-02-23 11:34] LABS: ANISOCYTOSIS 0; HELMET CELLS 0; MACROCYTOSIS 0; PLATELET ESTIMATE NORMAL
[2020-02-23] MEDS: SODIUM CHLORIDE 1,000 ML IV SCH (20:37)
[2020-02-24] MEDS: SODIUM CHLORIDE 1,000 ML IV SCH ×3 (04:00→16:49)
[2020-02-24 07:37] LABS: HEMATOCRIT 28.5 % (35.4-49); HEMOGLOBIN 9.2 GM/dL (11.7-16.9); MCHC 32.5 g/dl (32.0-35.9); MEAN CELL VOLUME 86.2 fl (80-96); MEAN PLT VOLUME 7.4 fl (7.5-11.1); PLATELET COUNT 159 K/MM3 (134-434); RDW 18.2 % (11.9-15.9); WHITE BLOOD COUNT 7.5 K/mm3 (4.0-10.0)
[2020-02-24 07:42] LABS: POTASSIUM 5.5 mmol/L (3.5-5.1)
[2020-02-24 07:43] LABS: CALCIUM 8.3 mg/dL (8.5-10.1)
[2020-02-24 07:44] LABS: BLOOD UREA NITROGEN 37.6 mg/dL (7-18)
[2020-02-24 07:47] LABS: CREATININE 1.3 mg/dL (0.55-1.3); PHOSPHOROUS 3.6 mg/dL (2.5-4.9)
[2020-02-24] MEDS ORDERED: DEXTROSE 5%-WATER - 50 ML IVPB ONE (09:11)
[2020-02-24] MEDS ORDERED: cefTRIAXone SODIUM 1 GM VIAL ONE (09:11)
[2020-02-24] MEDS: CEFTRIAXONE 1 GM in DEXTROSE 5%-WATER - 50 ML IVPB SCH (09:45)
[2020-02-24] MEDS: AZITHROMYCIN IVPB 500 MG/250 ML BAG IVPB SCH (09:45)
[2020-02-24] MEDS: FAMOTIDINE 20 MG TABLET PO SCH ×2 (09:46→21:58)
[2020-02-24] MEDS: ZINC SULFATE 220 MG CAPSULE (FP) PO SCH (09:46)
[2020-02-24] MEDS: ASCORBIC ACID 500 MG TABLET (FP) PO SCH ×2 (09:46→21:57)
[2020-02-24] MEDS: CHOLECALCIFEROL (VIT D3) 1,000 UNIT (25 MCG) TABLET PO SCH (09:46)
[2020-02-24] MEDS: DEXAMETHASONE 4 MG TABLET (FP) PO SCH (09:47)
[2020-02-24] MEDS: ENOXAPARIN NA (PORCINE) 40 MG/0.4 ML DISP.SYRIN SQ SCH (09:48)
[2020-02-24 10:07] LABS: ERYTHROCYTE SEDIMENTATION RATE 39 mm/hr (0-20)
[2020-02-24] MEDS ORDERED: ALBUTEROL SO4 0.083% IH SOL 2.5 MG/3 ML VIAL.NEB. NEB ONE (12:23)
[2020-02-24] MEDS ORDERED: DEXTROSE 50%-WATER - 25 GM/50 ML VIAL IVPUSH ONE (19:33)
[2020-02-24] MEDS: CARVEDILOL 6.25 MG TABLET (FP) PO SCH (21:58)
[2020-02-25] MEDS: SODIUM CHLORIDE 1,000 ML IV SCH (04:30)
[2020-02-25 07:29] LABS: HEMATOCRIT 29.1 % (35.4-49); HEMOGLOBIN 9.5 GM/dL (11.7-16.9); LYMPH % 3.4 % (8-40); MCHC 32.7 g/dl (32.0-35.9); MEAN CELL VOLUME 85.8 fl (80-96); MEAN PLT VOLUME 7.2 fl (7.5-11.1); MONO % 7.2 % (3.8-10.2); NEUT % 89.4 % (42.8-82.8); PLATELET COUNT 137 K/MM3 (134-434); RDW 18.1 % (11.9-15.9); WHITE BLOOD COUNT 6.7 K/mm3 (4.0-10.0)
[2020-02-25 07:49] LABS: BLOOD UREA NITROGEN 32.1 mg/dL (7-18)
[2020-02-25 07:50] LABS: MAGNESIUM 1.8 mg/dL (1.8-2.4)
[2020-02-25] MEDS ORDERED: DEXTROSE 5%-WATER - 50 ML IVPB ONE (09:43)
[2020-02-25] MEDS ORDERED: cefTRIAXone SODIUM 1 GM VIAL ONE (09:43)
[2020-02-25] MEDS ORDERED: NIFEdipine E.R. 30 MG TABLET PO SCH (10:00)
[2020-02-25 10:39] VITALS: PULSE 76
[2020-02-25] MEDS: CEFTRIAXONE 1 GM in DEXTROSE 5%-WATER - 50 ML IVPB SCH (11:08)
[2020-02-25] MEDS: ENOXAPARIN NA (PORCINE) 40 MG/0.4 ML DISP.SYRIN SQ SCH (11:09)
[2020-02-25] MEDS: CARVEDILOL 6.25 MG TABLET (FP) PO SCH (11:09)
[2020-02-25] MEDS: AZITHROMYCIN IVPB 500 MG/250 ML BAG IVPB SCH (11:09)
[2020-02-25] MEDS: FAMOTIDINE 20 MG TABLET PO SCH (11:09)
[2020-02-25] MEDS: CHOLECALCIFEROL (VIT D3) 1,000 UNIT (25 MCG) TABLET PO SCH (11:10)
[2020-02-25] MEDS: ASCORBIC ACID 500 MG TABLET (FP) PO SCH (11:10)
[2020-02-25] MEDS: ZINC SULFATE 220 MG CAPSULE (FP) PO SCH (11:10)
[2020-02-25 13:47] VITALS: BP 150/89; TEMP 98.4
== END 2020-02-25 16:59 | disposition home or self-care (01) | DRG 193 ==
LOC: JER 14:17 → JERBED 18:38 → J4W 02-23 00:03
PROVIDERS: ADMIT Hospitalist; ATTEND Internal Medicine
DX: J18.9 Pneumonia, unspecified organism (principal); J96.01 Acute respiratory failure with hypoxia; N17.9 Acute kidney failure, unspecified; E86.0 Dehydration; I10 Essential (primary) hypertension; G47.00 Insomnia, unspecified; D72.829 Elevated white blood cell count, unspecified; R00.0 Tachycardia, unspecified; R91.8 Other nonspecific abnormal finding of lung field; E87.5 Hyperkalemia; R59.1 Generalized enlarged lymph nodes; Z85.038 Personal history of other malignant neoplasm of large intestine
CPT/HCPCS: 36415; 71045-TC-FY; 71250-TC; 76775-TC; 80048; 80053; 81003; 82308; 82550; 82565; 82728; 83615; 83735; 84100; 84300; 84484; 85025; 85027; 85379; 85384; 85610; 85651; 85730; 86140; 86769; 86850; 86900; 86901; 87040; 87086; 87804; 87807; 87899; 93005; 93010; 94640; 94761; 99285-25; C9803; J1644; U0003